=== PATIENT | female | born 1945 | race Caucasian/White ===

== ENCOUNTER 2023-09-28 04:09 | Inpatient (IN) | payer OTHER, SELFPAY ==
[2023-09-27 20:52] VITALS: BP 126/64
[2023-09-28] VITALS (13 sets, daily range): BP systolic 111–144; BP diastolic 59–98; PULSE 100; O2SAT 93; BMI 28.5
[2023-09-28 01:04] LABS: % Basophils 0.2 % (0-2); % Eosinophils 0.1 % (0-6); % Immature Granulocytes 0.3 % (0-0.5); % Lymphocytes 17.1 % (20.5-51.1); % Monocytes 4.9 % (1.7-9.3); % Neutrophils 77.4 % (42.2-75.2); Absolute Lymphocytes 2.1 10^3/uL (1.2-3.4); Absolute Monocytes 0.6 10^3/uL (0.1-0.6); Absolute Neutrophils 9.3 10^3/uL (1.4-6.5); Hematocrit 38.2 % (37.0-47.0); Hemoglobin 13.2 g/dL (12.0-16.0); Mean Corp Hgb Conc. 34.6 g/dL (33.0-37.0); Mean Corpuscular Hgb 30.6 pg (27.0-31.0); Mean Corpuscular Volume 88.4 fL (81.0-99.0); Mean Platelet Volume 11.6 fL (7.4-10.4); Nucleated Red Blood Cells % 0 %; Platelet Count 277 10^3/uL (130-400); Red Blood Cell Count 4.32 10^6/uL (4.20-5.40); Red Cell Dist. Width 14.3 % (11.5-14.5); White Blood Cell Count 12.1 10^3/uL (4.8-10.8)
[2023-09-28 01:18] LABS: ALT (SGPT) 64 U/L (0-35); AST (SGOT) 252 U/L (14-36); Albumin 3.2 g/dl (3.5-5.0); Alkaline Phosphatase 386 U/L (38-126); Blood Urea Nitrogen 40 mg/dl (7-17); Carbon Dioxide 28 mmol/L (22-30); Chloride 97 mmol/L (98-107); Estimated Creatinine Clearance 33 ml/min; Glucose 121 mg/dl (70-99); Potassium 3.7 mmol/L (3.5-5.1); Sodium 136 mmol/L (135-145); Total Bilirubin 2.6 mg/dl (0.2-1.3); Total Protein 9.5 g/dl (6.3-8.2); eGFR 38.75
[2023-09-28 01:29] LABS: Troponin I < 0.012 ng/ml
--- NOTE | 2023-09-28 01:34 | ED.GENMED ---
History of Present Illness
<SOCORRO Wilks - Last Filed: 09/28/23 05:55>
General
Chief Complaint: Cardiac Symptoms
Source: patient
Exam Limitations: none
Time Seen by Provider: 09/28/23 01:16
Travel History
Have you had any contact with someone who has COVID-19?: No
Do you have any symptoms of coronavirus? Fever > 100 degrees, chills, cough, shortness of breath, sore throat, loss of taste or smell, muscle aches, or headache?: No
History of Present Illness
History of Present Illness:
This is a 78 yo female PMH HTN presenting for fatigue x 1 week. She states she has been laying in bed with low energy and low appetite. She states she was evaluated at urgent care today and was recommended to come to the ED. She describes vague
epigastric discomfort that has been present for a couple days. She denies nausea, vomiting, fever, chills, hearing or vision changes, extremity weakness, and gait abnormalities.
According to the patient her medical history is significant for HTN and and cancer diagnosed in 2018, which she thinks is either lymphoma or leukemia. She states she has regular appointments with her oncologist and has never undergone chemotherapy
or radiation therapy.
Review of Systems
<SOCORRO Wilks - Last Filed: 09/28/23 05:55>
Review of Systems
Allergies reviewed?: Yes
Constitutional: Reports fatigue
Respiratory: Reports no symptoms
Cardiac: Reports no symptoms
ABD/GI: Reports no symptoms
: Reports no symptoms
Musculoskeletal: Reports no symptoms
Skin: Reports no symptoms
Neurological: Reports no symptoms
Psychiatric: Reports no symptoms
Phy Exam
<SOCORRO Wilks - Last Filed: 09/28/23 05:55>
General Physical Exam
General Presentation: well appearing and no apparent distress
General age: appears stated age
General Skin: warm and dry
General Habitus: normal
General Mental: alert
General Hydration: appears well hydrated
Eye Exam
Eye Exam: PERRL and EOMI
Cardiovascular Exam
Cardiovascular Exam: regular rate/rhythm, no gallop and no murmur
Pulmonary Exam
Pulmonary Exam: lungs clear and no respiratory distress
Gastrointestinal Exam
Gastrointestinal Exam: non tender, soft and non distended
Neurological Exam
Neurological Exam: alert and oriented x3
Skin Exam
Skin Exam: normal color and warm/dry
Psychiatric Exam
Psychiatric Exam: normal mood/affect
Course
<SOCORRO Wilks - Last Filed: 09/28/23 05:55>
Orders/Labs/Results
Orders:
Orders
09/27/23 20:58
Electrocardiogram (*1) Urgent
Reason for Study: Shortness of Breath
CMP [Comprehensive Metabolic Panel] Urgent
Complete Blood Count/With Diff Urgent
Troponin I Urgent
09/27/23 20:59
EKG- Treatment ONCE
09/28/23 01:47
US Abdomen Complete/Upper Urgent
Comment:
Reason For Exam: Elevated bilirubin, AST, ALT, Alk phos
09/28/23 03:54
Admit/Transfer Patient As Directed
Co-Sign Provider:
Level of Care: Inpatient admission
Assign to:: Telemetry
Physician / Group: Leonidas
Diagnosis: Cholelithiasis +/- Cholecystitis
Reason for Telemetry: Chest Pain syndromes
Date to Stop Telemetry: 09/30/23
Time to Stop Telemetry: 11:00
Reason for Hospitalization: Cholelithiasis +/- Cholecystitis
Expected length of stay greater than two midnights?: Yes
ELOS- Estimated Length of Stay in days: 3
I certify the patient meets the requirements for IP care: Yes
09/28/23 03:55
Code Status As Directed
Resuscitation Status: Full Code
09/28/23 03:58
CPK [Creatine Phosphokinase] Urgent
Lipase Urgent
09/28/23 04:52
0.9% Sodium Chloride 1000 ml [Nss] 1,000 ml IV 125 mls/hr
Acetaminophen [Tylenol] 650 mg PO Q4HPRN PRN
HYDROmorphone [Dilaudid] 0.5 mg IV Q4HPRN PRN
Prochlorperazine [Compazine] 5 mg IV Q6HPRN PRN
09/28/23 04:52
Consult Notification Routine
Specialty to Notify: Gastroenterology
Consult Notification Routine
Specialty to Notify: Surgical
GASTROINTESTINAL CONSULT Routine
Consulting Provider: Lizeth Pickens
Was physician already notified: No
Reason for consult: Cholelithiasis +/- Cholecystitis
SURGICAL CONSULT Routine
Consulting Provider: Quinn Spence
Was physician already notified: No
Reason for consult: Cholelithiasis +/- Cholecystitis
TSH Reflex To Free T4 Routine
Activity As Directed
Activity Level: Ambulate
With Assistance
Bladder Scan As Directed
Follow Bladder Retention/Intermittent Cath Algorithm?: Yes
PRN if no void in __ hours: 6
Frequency: Per Retention Algorithm
If Bladder Scan Result >: 400
then:: Straight cath
EKG with chest pain [ECG as needed] As Directed
ECG as needed for:: Chest Pain
I/O [Intake/ Output] As Directed
Frequency: Per unit guidelines
Orthostatic Vital Signs As Directed
Orthostatic VS Frequency: BID
Straight Cath As Directed
Frequency: Per Retention Algorithm
Additional Instructions: straight cath as needed per acute urinary retention algorithm for 24 hrs
Additional Instructions: for bladder scan greater than 400 mL
Vital Signs As Directed
Frequency: Per unit guidelines
Weight As Directed
Frequency: Daily
Oxygen Therapy [O2 Therapy] [RESP] Routine
Titrate/Wean O2 to maintain O2 sat greater than (%): 94
Rx Incentive Spirometry [RESP] Routine
Frequency: q1h while awake
Ot Eval And Treat Routine
PT Consult [Pt Eval And Treat] Routine
Activity Level: Ambulate
With Assistance
DX Deep Vein Thrombosis Video Routine
09/28/23 06:00
Basic Metabolic Panel IN AM
Complete Blood Count/No Diff IN AM
LFT [Awrmf-Rqtr-Kjhlrew] IN AM
Magnesium IN AM
Phosphorus IN AM
MetroNIDAZOLE 500 MG/100 ML [Flagyl 500 mg] 100 ml IV Q8H
09/28/23 08:00
Amlodipine [Norvasc] 10 mg PO DAILY
Heparin 5,000 units SC Q12
09/29/23 Breakfast
NPO
Allow oral meds: Yes
Allow clear liquids: Sips of Clears
09/30/23 11:00
DC Protocol for Telemetry ONCE
Abnormal Lab Results
09/28/23
00:56
WBC 12.1 H 10^3/uL
(4.8-10.8)
MPV 11.6 H fL
(7.4-10.4)
Absolute Neuts (auto) 9.3 H 10^3/uL
(1.4-6.5)
Neutrophils % 77.4 H %
(42.2-75.2)
Lymphocytes % 17.1 L %
(20.5-51.1)
Chloride 97 L mmol/L
(98-107)
BUN 40 H mg/dl
(7-17)
Creatinine 1.4 H mg/dL
(0.6-1.0)
Glucose 121 H mg/dl
(70-99)
Calcium 13.0 H mg/dl
(8.4-10.2)
Total Bilirubin 2.6 H mg/dl
(0.2-1.3)
AST 252 H U/L
(14-36)
ALT 64 H U/L
(0-35)
Alkaline Phosphatase 386 H U/L
(38-126)
Total Protein 9.5 H g/dl
(6.3-8.2)
Albumin 3.2 L g/dl
(3.5-5.0)
09/28/23 00:56
09/28/23 00:56
Vital Signs
Initial and Last Documented VS:
Initial Vital Signs
Temp Pulse Resp BP Pulse Ox
97.3 F 116 24 126/64 95
09/27/23 20:52 09/27/23 20:52 09/27/23 20:52 09/27/23 20:52 09/27/23 20:52
Last Documented Vital Signs
Temp Pulse Resp BP Pulse Ox
97.3 F 94 23 121/59 94
09/27/23 20:52 09/28/23 01:46 09/28/23 01:46 09/28/23 01:46 09/28/23 01:46
Zuleimalt;Jordan Wayne, DO - Last Filed: 09/28/23 03:29>
Orders/Labs/Results
Orders:
Orders
09/27/23 20:58
Electrocardiogram (*1) Urgent
Reason for Study: Shortness of Breath
CMP [Comprehensive Metabolic Panel] Urgent
Complete Blood Count/With Diff Urgent
Troponin I Urgent
09/27/23 20:59
EKG- Treatment ONCE
09/28/23 01:47
US Abdomen Complete/Upper Urgent
Comment:
Reason For Exam: Elevated bilirubin, AST, ALT, Alk phos
09/28/23 03:54
Admit/Transfer Patient As Directed
Co-Sign Provider:
Level of Care: Inpatient admission
Assign to:: Telemetry
Physician / Group: Leonidas
Diagnosis: Cholelithiasis +/- Cholecystitis
Reason for Telemetry: Chest Pain syndromes
Date to Stop Telemetry: 09/30/23
Time to Stop Telemetry: 11:00
Reason for Hospitalization: Cholelithiasis +/- Cholecystitis
Expected length of stay greater than two midnights?: Yes
ELOS- Estimated Length of Stay in days: 3
I certify the patient meets the requirements for IP care: Yes
09/28/23 03:55
Code Status As Directed
Resuscitation Status: Full Code
09/28/23 03:58
CPK [Creatine Phosphokinase] Urgent
Lipase Urgent
09/28/23 04:52
0.9% Sodium Chloride 1000 ml [Nss] 1,000 ml IV 125 mls/hr
Acetaminophen [Tylenol] 650 mg PO Q4HPRN PRN
HYDROmorphone [Dilaudid] 0.5 mg IV Q4HPRN PRN
Prochlorperazine [Compazine] 5 mg IV Q6HPRN PRN
09/28/23 04:52
Consult Notification Routine
Specialty to Notify: Gastroenterology
Consult Notification Routine
Specialty to Notify: Surgical
GASTROINTESTINAL CONSULT Routine
Consulting Provider: Lizeth Pickens
Was physician already notified: No
Reason for consult: Cholelithiasis +/- Cholecystitis
SURGICAL CONSULT Routine
Consulting Provider: Quinn Spence
Was physician already notified: No
Reason for consult: Cholelithiasis +/- Cholecystitis
TSH Reflex To Free T4 Routine
Activity As Directed
Activity Level: Ambulate
With Assistance
Bladder Scan As Directed
Follow Bladder Retention/Intermittent Cath Algorithm?: Yes
PRN if no void in __ hours: 6
Frequency: Per Retention Algorithm
If Bladder Scan Result >: 400
then:: Straight cath
EKG with chest pain [ECG as needed] As Directed
ECG as needed for:: Chest Pain
I/O [Intake/ Output] As Directed
Frequency: Per unit guidelines
Orthostatic Vital Signs As Directed
Orthostatic VS Frequency: BID
Straight Cath As Directed
Frequency: Per Retention Algorithm
Additional Instructions: straight cath as needed per acute urinary retention algorithm for 24 hrs
Additional Instructions: for bladder scan greater than 400 mL
Vital Signs As Directed
Frequency: Per unit guidelines
Weight As Directed
Frequency: Daily
Oxygen Therapy [O2 Therapy] [RESP] Routine
Titrate/Wean O2 to maintain O2 sat greater than (%): 94
Rx Incentive Spirometry [RESP] Routine
Frequency: q1h while awake
Ot Eval And Treat Routine
PT Consult [Pt Eval And Treat] Routine
Activity Level: Ambulate
With Assistance
DX Deep Vein Thrombosis Video Routine
09/28/23 06:00
Basic Metabolic Panel IN AM
Complete Blood Count/No Diff IN AM
LFT [Exwzs-Tdsf-Dlivqyp] IN AM
Magnesium IN AM
Phosphorus IN AM
MetroNIDAZOLE 500 MG/100 ML [Flagyl 500 mg] 100 ml IV Q8H
09/28/23 08:00
Amlodipine [Norvasc] 10 mg PO DAILY
Heparin 5,000 units SC Q12
09/29/23 Breakfast
NPO
Allow oral meds: Yes
Allow clear liquids: Sips of Clears
09/30/23 11:00
DC Protocol for Telemetry ONCE
Abnormal Lab Results
09/28/23
00:56
WBC 12.1 H 10^3/uL
(4.8-10.8)
MPV 11.6 H fL
(7.4-10.4)
Absolute Neuts (auto) 9.3 H 10^3/uL
(1.4-6.5)
Neutrophils % 77.4 H %
(42.2-75.2)
Lymphocytes % 17.1 L %
(20.5-51.1)
Chloride 97 L mmol/L
(98-107)
BUN 40 H mg/dl
(7-17)
Creatinine 1.4 H mg/dL
(0.6-1.0)
Glucose 121 H mg/dl
(70-99)
Calcium 13.0 H mg/dl
(8.4-10.2)
Total Bilirubin 2.6 H mg/dl
(0.2-1.3)
AST 252 H U/L
(14-36)
ALT 64 H U/L
(0-35)
Alkaline Phosphatase 386 H U/L
(38-126)
Total Protein 9.5 H g/dl
(6.3-8.2)
Albumin 3.2 L g/dl
(3.5-5.0)
09/28/23 00:56
09/28/23 00:56
Vital Signs
Initial and Last Documented VS:
Initial Vital Signs
Temp Pulse Resp BP Pulse Ox
97.3 F 116 24 126/64 95
09/27/23 20:52 09/27/23 20:52 09/27/23 20:52 09/27/23 20:52 09/27/23 20:52
Last Documented Vital Signs
Temp Pulse Resp BP Pulse Ox
97.3 F 94 23 121/59 94
09/27/23 20:52 09/28/23 01:46 09/28/23 01:46 09/28/23 01:46 09/28/23 01:46
<SOCORRO Wilks - Last Filed: 09/28/23 05:55>
MDM/Problems Addressed
Differential Diagnosis Includes:
Cholelithiasis
Cholecystitis
MDM/Problems Addressed:
-Multiple lab abnormalities noted, including bilirubin, AST/ALT, alkaline phosphatase. Abdominal US has been ordered to investigate potential abdominal causes of elevated labs.
-Abdominal US showed multiple gallstones
-Patient will be admitted due to presentation of fatigue x 1 week, elevated LFTs and presence of gallstones
<SOCORRO Wilks - Last Filed: 09/28/23 05:55>
*Critical Care Note
Total Time (30-74mins, 75-104mins- exclusive of procedures): Not Applicable
<Jordan Wayne DO - Last Filed: 09/28/23 03:29>
Update Note
Update Note:
RUQ ABDOMINAL ULTRASOUND
IMPRESSION
Multiple gallstones, difficult to evaluate the neck for an impacted stone given the shear number of stones. There is mild pericholecystic fluid images 82-88 . No sonographic Bauer's sign, wall thickening, or other signs of cholecystitis.
Common bile duct is unremarkable.Constellation findings are nonspecific for acute cholecystitis, consider further workup or followup ultrasound especially if symptoms persist or progress.
Mild hepatomegaly with slightly lobulated appearance.
Kidneys and spleen are unremarkable
Pancreas is obscured secondary to overlying bowel gas.
Remainder of the visualized upper abdomen is unremarkable.
ED Attending Note
<SOCORRO Wilks - Last Filed: 09/28/23 05:55>
-
Portions of this chart may have been created with voice recognition software.� Occasional wrong word or��sound alike� substitutions may have occurred due to the inherent limitations of voice recognition software.
<Jodran Wayne DO - Last Filed: 09/28/23 03:29>
ED Attending Note
Patient seen and examined by attending physician: Yes
I performed the substantive portion of visit, reviewed & personally made and approve the management plan that is documented in note by myself or LYUBOV.: Yes
ED Attending Note:
Pleasant 78-year-old female who presents with 1 week of fatigue. According to family member, she is lying in bed for the last week. She has been having some epigastric and right upper quadrant abdominal pain that started yesterday and persisted
throughout the day. She went to urgent care who evaluated her and ran an EKG. They are concerned about a 'incomplete right bundle branch block 'so sent her to the emergency department. Upon arrival she states that the pain waxed and waned.
Denied chest pain or shortness of breath. Patient was seen in conjunction with the PA student. I have reviewed and agree with the history and treatment plan presented. On my independent physical exam, patient is awake, alert, and oriented x3,
minimal acute distress. Heart is regular rate and rhythm. Lungs are clear to auscultation bilaterally. Abdomen is soft with tenderness to palpation in the epigastric and right upper quadrants. No rigidity or guarding. No rebound tenderness.
Negative McBurney's point tenderness. Negative Bauer sign.
Vital signs are stable. Patient not hypoxic
Nursing note reviewed. I agree with nursing documentation up to this point in time.
Home Meds and allergies reviewed.
NUMBER AND COMPLEXITY OF PROBLEMS ADDRESSED AT THE ENCOUNTER
� Chronic conditions affecting care: Hypertension, cancer
� Acute Exacerbation and/or Progression of Chronic Illness: This acute problem
� Differential Diagnosis includes:
AMOUNT AND/OR COMPLEXITY OF DATA TO BE REVIEWED AND ANALYZED
I performed an independent evaluation of the following and my interpretation is:
EKG: EKG shows sinus tachycardia rate of 105 with a right bundle branch block. Otherwise normal intervals, indeterminate axis. No evidence of acute ischemia present. No old EKGs available for comparison.
CT:
X-rays:
Ultrasound: Gallstones
Laboratory Studies: Total bilirubin is 2.6, AST is 252, ALT is 64, alk phos is 386
Other:
Review of other/old records:
Clinical information was obtained by an independent historian:
Prescriptions/Medications Considered but not given:
Further testing considered but not performed:
RISK OF COMPLICATIONS AND/OR MORBIDITY OR MORTALITY OF PATIENT MANAGEMENT
Social determinants of health affecting care: Good Social Support
Discussion with other providers: Hospitalist for admission
Escalation of care including admission/observation vs risk of discharge considered:
CRITICAL CARE NOTE:
Total Time (exclusive of procedures):
Update:
Discharge Plan
Departure
Patient Disposition: Admit
Date of Disposition: 09/28/23
Time of Disposition: 03:23
Admit to: Med/Surg
Presentation/result/management discussed w/ accepting MD/DO: Hospitalist
Condition: Good
Discharge Problem:
Abdominal pain, Biliary colic, Weakness
Interventions
Interventions:
*Risk Screen - Suicide Last Done: 09/28/23 00:57
*General Assessment Last Done: 09/28/23 00:57
*Neglect/Abuse Screening Last Done: 09/28/23 00:57
*ED COVID-19 Vaccine History Last Done: 09/28/23 00:57
ED- Pulmonary Assessment Last Done: 09/28/23 00:57
ED- Cardiac Assessment Last Done: 09/28/23 00:57
--- NOTE | 2023-09-28 04:00 | HPS.HSE ---
Family Physician
-
Family Physician: Annie Zee
Chief Complaint
-
Fatigue
History of Present Illness
Patient is a 78y F with PMH significant for hypertension and hematologic malignancy who presents to ED complaining of fatigue x 1 week. History obtained from patient and her son at the bedside. Patient notes that she has been very fatigued /
tired for the past week or so. She has had poor appetite and has spent much of her time in bed in a dark room. She denies any significant chest pain, dyspnea, abdominal pain, N/V/D or urinary complaints. With persistent symptoms, today she
presented to an Urgent Care for evaluation. She had an abnormal EKG there and was sent to the ED for further evaluation.
In the ED she is resting comfortably and has no complaints excepting fatigue.
Patient has no prior history of NV / CVA. No known history of gallstone / gallbladder disease.
Medical History
Past Medical History
Past Medical History: Reports Other
Additional Past Medical History:
Hypertension
Hematologic Malignancy / Lymphoma - ? Type
Past Surgical History: Reports Other
Additional Past Surgical History:
Right Neck Surgery (11yo - unknown details)
Social History
Tobacco: Non-smoker
Alcohol: None
Drug: None
Living: With Family
Family History
Family History: Not pertinent
Allergies / Home Medications
Allergies reflects when Allergies were last updated in [facility].
Home Medications with original date entered in [facility]
Allergy/Medication List:
Allergies
Allergy/AdvReac Type Severity Reaction Status Date / Time
amoxicillin Allergy Unknown Verified 09/27/23 20:58
erythromycin base Allergy Nausea / Verified 09/27/23 20:58
Vomiting
Home Medications
amlodipine 10 mg tablet 10 mg PO DAILY 09/28/23
hydrochlorothiazide 25 mg tablet 25 mg PO DAILY 09/28/23
Review of Systems
-
History Source: Patient
A 12 point ROS was completed and negative except as noted: Yes
Constitutional: Reports Fatigue; Denies Fever, Weight Gain, Weight Loss, Night Sweats or Chills
EENT: Denies Sore Throat
Respiratory: Denies Cough or Trouble Breathing
Cardiac: Denies Chest Pain or Palpitations
Abdomen/GI: Reports Anorexia; Denies Abdominal Pain, Nausea, Vomiting, Diarrhea, Constipated, Bloody Stools or Black Stools
: Denies Dysuria, Frequency or Flank Pain
Musculoskeletal: Denies Joint Pain or Edema
Neurological: Denies Dizzy or Headache
Psych: Denies Depression or Anxiety
Physical Exam
Vital Signs
Vital Signs
Temp Pulse Resp BP Pulse Ox
97.3 F 94 23 121/59 94
09/27/23 20:52 09/28/23 01:46 09/28/23 01:46 09/28/23 01:46 09/28/23 01:46
Physical Exam
General: Other (78y F in no acute distress.)
HEENT: PERRLA and Other (Dry MM.)
Respiratory: Other (Decreased BS throughout. No W/R/R.)
Cardiac: S1/S2 and Regular Rhythm; No Murmur
GI: Soft, Non Distended, Normal Bowel Sounds and Other (Mild tenderness over R abdomen. No rebound / guarding.)
Genito-urinary: No costovertebral tender
Musculoskeletal: No Clubbing, No Cyanosis and No Edema
Neuro: AO x 3 and Nonfocal/grossly intact
Psych: No Anxious or Depressed
Laboratory Results
-
09/28/23 00:56
09/28/23 00:56
Laboratory Results
Total Bilirubin 2.6 mg/dl (0.2-1.3) H 09/28/23 00:56
AST 252 U/L (14-36) H 09/28/23 00:56
ALT 64 U/L (0-35) H 09/28/23 00:56
Alkaline Phosphatase 386 U/L (38-126) H 09/28/23 00:56
Troponin I < 0.012 ng/ml 09/28/23 00:56
Impression/Plan
-
A/P: Patient is a 78y F with PMH significant for hypertension and hematologic malignancy who presents to ED complaining of fatigue x 1 week.
Cholelithiasis +/- Cholecystitis
- Admit for further evaluation and treatment.
- Labs done in the ED include abnormal LFTs and follow-up US shows marked amount of gallstones.
- ? pericholecystic fluid. Cannot rule out acute cholecystitis.
- Only presenting symptom is fatigue - no significant pain, N/V, etc.
- Cover with IV abx for now.
- GI and Surgery evaluations.
- ? MR / HIDA for further work-up.
- Follow for any new / worsening symptoms.
Hypercalcemia
- No prior labs to compare.
- With known lymphoma, possible this reflects degree of hypercalcemia of malignancy + volume contraction after one week of poor appetite.
- IVF replacement overnight.
- Follow for changes in labs. May be contributing to sense of fatigue.
- Consider Pamidronate +/- Oncology eval if Ca does not improve with volume alone.
Abnormal LFTs
- Some degree of LFT abnormality (bili, alk phos especially) may be due to gallstone disease.
- AST > > ALT is suspicious for alternate etiology.
- Patient denies any EtOH use at all.
- Check CPK - especially with one week of lying in bed - to rule out rhabdo.
- IVFs as noted above.
- Follow for improvement in labs.
Benign Hypertension
- Stable. Continue amlodipine with holding parameters.
- Hold HCTZ for now.
Hematologic Malignancy
- Patient cannot recall the exact diagnosis - some form of lymphoma.
- She is not now nor has she ever been on active treatment.
- Followed by Dr. Tatum.
- Follow for changes in cell counts, calcium levels, etc.
- No marked cell line abnormalities that would suggest this is contributing to her acute presentation.
DVT Prophylaxis: Subcut Heparin
Code Status: Full
[2023-09-28 06:26] LABS: Hematocrit 37.7 % (37.0-47.0); Hemoglobin 12.8 g/dL (12.0-16.0); Mean Corpuscular Hgb 30.4 pg (27.0-31.0); Mean Corpuscular Volume 89.5 fL (81.0-99.0); Platelet Count 261 10^3/uL (130-400); Red Blood Cell Count 4.21 10^6/uL (4.20-5.40); Red Cell Dist. Width 14.4 % (11.5-14.5); White Blood Cell Count 10.9 10^3/uL (4.8-10.8)
[2023-09-28 06:36] LABS: Creatine Phosphokinase 251 U/L (30-135); Lipase 289 U/L (23-300)
[2023-09-28 06:41] LABS: ALT (SGPT) 55 U/L (0-35); AST (SGOT) 240 U/L (14-36); Albumin 3.2 g/dl (3.5-5.0); Alkaline Phosphatase 354 U/L (38-126); Blood Urea Nitrogen 42 mg/dl (7-17); Calcium 13.1 mg/dl (8.4-10.2); Carbon Dioxide 28 mmol/L (22-30); Chloride 96 mmol/L (98-107); Estimated Creatinine Clearance 36 ml/min; Glucose 105 mg/dl (70-99); Magnesium 2.2 mg/dl (1.6-2.3); Phosphorus 4.4 mg/dl (2.5-4.5); Potassium 3.6 mmol/L (3.5-5.1); Sodium 138 mmol/L (135-145); Total Bilirubin 2.6 mg/dl (0.2-1.3); eGFR 42.35
[2023-09-28 07:09] LABS: TSH Reflex To Free T4 2.29 uIU/ml (0.47-4.68)
[2023-09-28] MEDS: NSS (PRESERVATIVE FREE) 10 ML IV (07:38)
[2023-09-28] MEDS: HEPARIN 5000 UNITS SC ×2 (07:38→21:13)
[2023-09-28] MEDS: PROTONIX IV 40 MG IV (07:38)
[2023-09-28] MEDS: NSS 1000 IV ×2 (08:23→23:48)
[2023-09-28] MEDS: FLAGYL 500 MG 100 IV ×3 (08:40→23:49)
--- NOTE | 2023-09-28 08:48 | CON.GS ---
Consultation
-
Date/Time Consultation Requested: 09/28/2023 8 AM
Date/Time Consultation Performed: 09/28/2023 8 AM
Requesting Provider: Dr. Lauren
Performing Provider: Dr. Luna
Reason for Consultation: Cholelithiasis
Medical History
-
Chief Complaint: Fatigue x 1 week and hypogastric abdominal pain.
History of Present Illness:
This is a 78-year-old female with history of hypertension, lymphoma, and no prior abdominal surgeries who presents with 1 week history of fatigue, poor appetite and was brought in for evaluation. Workup significant for elevated LFTs (bilirubin 2.6,
direct 2.0) which prompted an ultrasound demonstrating cholelithiasis with gallbladder wall thickening and pericholecystic fluid however sonographic Bauer sign was negative. General surgery was consulted to comment on these findings. The patient
denies prior episodes, fever, Chest Pain, Shortness Of Breath, Nausea, Vomiting, changes in urinary and bowel habits, unintentional weight loss, jaundice, icterus, acolic stools.
Past Medical History
Past Medical History: Reviewed & Noncontributory
Past Surgical History: Reviewed & Noncontributory
Social History
Tobacco: Non-Smoker
Alcohol: None
Drug: None
Living: With Family
Family History
Family History: Reviewed & Not Pertinent
Allergies / Home Medications
Allergy/AdvReac Type Severity Reaction Status Date / Time
amoxicillin Allergy Unknown Verified 09/27/23 20:58
erythromycin base Allergy Nausea / Verified 09/27/23 20:58
Vomiting
�Medication �Instructions �Recorded �Confirmed �Type
amlodipine 10 mg tablet 10 mg PO DAILY 09/28/23 09/28/23 History
hydrochlorothiazide 25 mg tablet 25 mg PO DAILY 09/28/23 09/28/23 History
Review of Systems
-
All other systems: Negative unless noted
A 10 point review of systems was completed, and was negative except as per HPI.
Physical Exam
Vital Signs
Temp Pulse Resp BP Pulse Ox
97.8 F 87 12 130/80 95
09/28/23 08:27 09/28/23 08:27 09/28/23 08:27 09/28/23 08:27 09/28/23 08:27
09/27/23 09/28/23 09/29/23
06:59 06:59 06:59
Actual Weight 75.2 kg
Body Mass Index (BMI) 28.5
Lab Results
09/28/23 06:10
09/28/23 06:10
WBC 10.9 10^3/uL (4.8-10.8) H 09/28/23 06:10
Hgb 12.8 g/dL (12.0-16.0) 09/28/23 06:10
Hct 37.7 % (37.0-47.0) 09/28/23 06:10
Plt Count 261 10^3/uL (130-400) 09/28/23 06:10
Abs Immat Gran (auto) 0.0 10^3/uL (0-0.05) 09/28/23 00:56
Neutrophils % 77.4 % (42.2-75.2) H 09/28/23 00:56
Physical Exam
General: Other (No apparent distress, however looks fatigued, answers questions slowly.)
HEENT: Normocephalic
Respiratory: Non Labored Respirations
GI: Soft, Non Distended and Tender (Minimal tenderness in the right upper quadrant)
Data Reviewed
-
Ultrasound: Image Personally Visualized and interpreted, Report Reviewed by me and Discussed with Patient
Labs: Labs Reviewed by me, Discussed with Physician and Discussed with Patient
Total Time Spent with Patient (in minutes): 20
Assessment / Plan
-
This is a 78-year-old female who presents with a 1 week history of worsening fatigue found to have elevated LFTs with a direct bilirubinemia. Minimally tender to palpation. Ultrasound with cholelithiasis, gallbladder wall thickening as well as
some pericholecystic fluid however negative sonographic Bauer sign.
Given elevated bilirubin recommend an MRCP today to evaluate for choledocholithiasis.
N.p.o., IV fluids, IV antibiotics.
Appreciate GI consult.
Anticipate laparoscopic cholecystectomy this admission, unlikely today given OR schedule but potentially tomorrow pending imaging findings and GI recommendations.
We will continue to follow along with you.
I spent roughly 60 minutes in total for the care of this patient today including direct patient care and counseling, reviewing labs, imaging, coordination of care, as well as documentation.
--- NOTE | 2023-09-28 08:54 | CON.GI ---
Addendum entered and electronically signed by Lizeth Pickens MD 09/28/23 15:21:
I saw and examined the patient.
The HONEY PRODUCER or PA's note was reviewed and I agree with the note.
Comment: 78-year-old female past medical history of lymphoma follows with Dr. Tatum and Hu presenting with fatigue and epigastric and right upper quadrant pain for the last 2 weeks. Pain is worse with food. She has lost some weight but cannot
quantify how much. She went to urgent care who did an EKG and was found she is tachycardic with a bundle branch block and was sent to the emergency room here. No nausea or vomiting.
Blood work significant for total bilirubin 2.6, direct 2, AST 240, ALT 55, alk phos 354, white blood cell count 10.9 down from 12.1. No fevers recorded here no fevers reported at home.
Ultrasound showed gallstones with gallbladder wall thickening and probable small pericholecystic fluid. Acute cholecystitis is possible. Hepatomegaly markedly heterogeneous in appearance with likely steatosis.
Due to these findings, we thought this was most likely biliary in etiology. Surgery was consulted. We did an MRI/MRCP which showed markedly abnormal liver, enlarged, heterogeneous with differential signal intensity in the left and right hepatic
lobes as outlined above. Severely restricted diffusion in the left hepatic lobe and heterogeneous enhancement on postcontrast imaging concerning for infiltrative malignancy. Recommend biopsy. Enlarged gallbladder with gallstones but no
gallbladder wall thickening and small amount of perihepatic and perisplenic ascites. Mildly enlarged lymph nodes could be neoplastic, inflammation, infection. Narrowing of the hepatic veins possible Budd-Chiari.
I discussed with the radiologist the above findings. I ordered a Doppler ultrasound. If the Doppler ultrasound is unrevealing, neck step would be getting a liver biopsy. I updated both the surgeon and the hospitalist. I discussed with patient
liver biopsy risks including but not limited to infection, bleeding, perforation. I sent a message to interventional radiology about liver biopsy tomorrow. Hospitalist will also be consulting oncology.
OK for clears after doppler today then NPO after midnight.
Addendum entered and electronically signed by Jackie Kc NP 09/28/23 10:05:
Continue NPO at this time
Original Note:
Consultation
-
Date/Time Consultation Requested: 09/28/23 @ 04:52
Date/Time Consultation Performed: 09/28/23 @ 09:00
Requesting Provider: Dr. Lauren
Performing Provider: ANTONINO Treviño; Dr. Merle Pickens
Reason for Consultation: Cholelithiasis +/- Cholecystitis
Medical History
Chief Complaint / HPI
Chief Complaint: fatigue
History of Present Illness:
The pt is a 78 yo female with a PMH significant for HTN, lymphoma (diagnosed in 2018 did not require treatment per patient followed by Dr. Tatum and [facility]), who presented to the ER with complaints of fatigue. We are being asked to evaluate for
abnormal LFTs with concern for cholecystitis with cholelithiasis. The patient reports that she has been having some some discomfort in her right upper quadrant over the past several days that radiates across the top of her abdomen. She denies any
radiation to her back but reports this pain was acute in onset. She denies using any pain medications at home such as Tylenol or NSAIDs. She also admits to feeling increasingly fatigued as well the past week. She notes that she has not been
eating well due to the ongoing discomfort and fatigue and thinks she may have lost some weight but is unclear how much. She denies any history of gallbladder disease or liver problems. She denies any alcohol use. She denies any recent changes in
her medications. She otherwise denies any fevers, chills, nausea, vomiting, dysphagia, constipation, diarrhea, melena, hematochezia, hematemesis, chest pain, or shortness of breath. She does note that she has a history of lymphoma although she is
on sure as to what type, but she does follow with oncology Dr. Tatum routinely, alternating seeing him in a doctor at [facility] every 3 to 6 months. She denies any need for treatment and has been monitored closely in regards to this since 2018. She
notes she had labs done in August and does not note any abnormalities at that time. She denies any history of hepatitis. She denies any history of drug use. She denies any significant family history of colon cancer or other GI cancers or
disorders. She notes that her granddaughter did need her gallbladder. She reports having a colonoscopy done in 2019 out of [place] which she had some questionable hemorrhoids banded otherwise denies any polyp. She denies any prior EGD. Routine
labs on admission showed WBC 12.1, hemoglobin 13.2, platelets 277,000, sodium 136, potassium 3.7, chloride 97, BUN 40, creatinine 1.4, calcium 13.0, total bilirubin 2.6, direct bilirubin 2.0, troponin negative x 1, AST 252, ALT 64, alk phos 386,
albumin 3.2, lipase 289, TSH 2.29. Ultrasound of the abdomen was done showing gallstones with gallbladder wall thickening and possible acute cholecystitis without evidence of biliary ductal dilation, with hepatomegaly and likely fatty liver. She
was made n.p.o., placed on IV antibiotics with Levaquin and Flagyl, and admitted for further evaluation by GI and general surgery. She did receive pain medication in the emergency room and currently feels comfortable.
Past Medical History
Past Medical History: Cancer (? Lymphoma follows with [facility] and [facility]) and HTN
Past Surgical History: Other (Neck surgery as a child)
Social History
Tobacco: Non-Smoker
Alcohol: None
Drug: None
Family History
Family History: Reviewed & Not Pertinent
Allergies / Home Medications
Allergy/AdvReac Type Severity Reaction Status Date / Time
amoxicillin Allergy Unknown Verified 09/27/23 20:58
erythromycin base Allergy Nausea / Verified 09/27/23 20:58
Vomiting
�Medication �Instructions �Recorded
amlodipine 10 mg tablet 10 mg PO DAILY 09/28/23
hydrochlorothiazide 25 mg tablet 25 mg PO DAILY 09/28/23
Review of Systems
-
History Source: Patient
Constitutional: Reports Weight Loss and Fatigue
EENT: Reports No Symptoms
Respiratory: Reports No Symptoms
Cardiac: Reports No Symptoms
Abdomen/GI: Reports Abdominal Pain and Other (Loss of appetite)
: Reports No Symptoms
Musculoskeletal: Reports No Symptoms
Skin: Reports No Symptoms
Neurological: Reports No Symptoms
Vital Signs
Temp Pulse Resp BP Pulse Ox
97.8 F 87 12 130/80 95
09/28/23 08:27 09/28/23 08:27 09/28/23 08:27 09/28/23 08:27 09/28/23 08:27
Physical Exam
Exam
General: Well Nourished, Comfortable and Other (Elderly appearing female in no acute distress)
HEENT: Normocephalic, Anicteric and Atraumatic
Respiratory: Clear
Cardiac: S1/S2 and Regular Rhythm
Breast: Deferred by me
GI: Soft, Non Distended, Normal Bowel Sounds and Tender (+TTP RUQ)
Rectal: Deferred by Provider
Musculoskeletal: No Edema
Skin: Warm and Dry
Neuro: Awake, Alert and Oriented
Psych: Calm
Results
WBC 10.9 10^3/uL (4.8-10.8) H 09/28/23 06:10
Hgb 12.8 g/dL (12.0-16.0) 09/28/23 06:10
Hct 37.7 % (37.0-47.0) 09/28/23 06:10
MCV 89.5 fL (81.0-99.0) 09/28/23 06:10
Plt Count 261 10^3/uL (130-400) 09/28/23 06:10
Absolute Neuts (auto) 9.3 10^3/uL (1.4-6.5) H 09/28/23 00:56
Sodium 138 mmol/L (135-145) 09/28/23 06:10
Potassium 3.6 mmol/L (3.5-5.1) 09/28/23 06:10
Chloride 96 mmol/L (98-107) L 09/28/23 06:10
Carbon Dioxide 28 mmol/L (22-30) 09/28/23 06:10
BUN 42 mg/dl (7-17) H 09/28/23 06:10
Creatinine 1.3 mg/dL (0.6-1.0) H 09/28/23 06:10
Calcium 13.1 mg/dl (8.4-10.2) H* 09/28/23 06:10
Total Bilirubin 2.6 mg/dl (0.2-1.3) H 09/28/23 06:10
AST 240 U/L (14-36) H 09/28/23 06:10
ALT 55 U/L (0-35) H 09/28/23 06:10
Alkaline Phosphatase 354 U/L (38-126) H 09/28/23 06:10
Lipase 289 U/L (23-300) 09/28/23 06:10
Diagnostic Image Results:
09/27/23 US abdomen: IMPRESSION: 'Cholelithiasis with gallbladder wall thickening and probable small volume pericholecystic fluid. Negative sonographic Bauer's sign. No findings to confirm biliary tract dilatation. Acute cholecystitis is possible.
Hepatomegaly, markedly heterogeneous in appearance and with relative increased echogenicity suggesting steatosis. Pancreas, abdominal aorta and IVC obscured, most likely by overlying bowel gas.'
Prior GI Procedures:
EGD: None
Colonoscopy: Last colonoscopy in 2019 done out of [place], patient reports banding for hemorrhoids but no polyp upon her recollection (report not available to me)
Assessment / Plan
-
The pt is a 78 yo female with a PMH significant for HTN, lymphoma (diagnosed in 2018 did not require treatment per patient followed by Dr. Tatum and [facility] Lui), who presented to the ER with complaints of fatigue, found to have elevated LFTs and
abnormal ultrasound imaging concerning for acute cholecystitis and possible choledocholithiasis given presence of gallstones and elevated bilirubin. She was started on IV antibiotics with Levaquin and Flagyl, made n.p.o., and admitted for further
evaluation by GI and general surgery. Currently she feels comfortable. Her LFTs remain elevated. Pending MRI and MRCP this morning. No prior history of liver disease or gallbladder disease. She does note history of lymphoma, unclear type,
follows with oncology regularly for surveillance and monitoring. Also with elevated calcium levels started on IV fluids.
Problem list:
-Abdominal pain, RUQ
-Abnormal LFTs
-Ultrasound imaging showing gallstones and possible acute cholecystitis without biliary ductal dilation
-Hypercalcemia
-Leukocytosis
-?JUSTIN, unclear baseline
-History of lymphoma, diagnosed in 2018 following with oncology, no prior treatment
-HTN
Recommendations:
-Etiology of abdominal pain/elevated LFT's likely secondary to biliary etiology given ultrasound findings such as acute cholecystitis versus choledocholithiasis versus other.
-Await MRI with MRCP for further evaluation. If positive for choledocho will need ERCP
-General surgery evaluation pending, will likely need eventual CCY
-Trend LFTs
-Antibiotics initiated with Levaquin and Flagyl
-Avoid hepatotoxins
-PRN analgesics as per hospitalist
-Unclear baseline for renal function, but downtrending creatinine. On IV fluids
-Persistent hypercalcemia, defer to hospitalist, may need oncology input given hx of lymphoma. Known to [place] Dr. Tatum.
-Will follow
Data Reviewed
-
Ultrasound: Report Reviewed by me and Discussed with Physician
-
-
Thank you for consultation and allowing me to participate in the patient's care. Please call the student education specialist GI physician during the after hours with any questions or concerns.
--- NOTE | 2023-09-28 09:03 | PTCARENOTE ---
0800: Patient arrived to 2S. Full head to toe assessment completed. IVF running per order. Call funes within reach and bed in lowest position.
[2023-09-28] MEDS: LEVAQUIN 100 IV (11:17)
--- NOTE | 2023-09-28 13:40 | W.PN.HOSP.TC ---
Today's Communication/Plan
-
Continue with IV fluids
Trend CMP
will ask onc for input
Antibiotics for now
Assessment / Plan
Assessment / Plan
A/P: Patient is a 78y F with PMH significant for hypertension and hematologic malignancy who presents to ED complaining of fatigue x 1 week.
Cholelithiasis +/- Cholecystitis
- Labs done in the ED include abnormal LFTs and follow-up US shows marked amount of gallstones.
- Only presenting symptom is fatigue - no significant pain, N/V, etc.
- Cover with IV abx for now.
- GI and Surgery evaluations.
- MRCP follow-up Elongated. Multiple gallstones. No intrahepatic biliary ductal dilatation. No CBD dilatation. No intraluminal filling defect.
- Follow for any new / worsening symptoms.
Hypercalcemia likely multifactorial With known lymphoma, possible this reflects degree of hypercalcemia of malignancy + volume contraction after one week of poor appetite vs, HCTZ plus prolonged bedrest
- No prior labs to compare.
-Per patient with lymphoma she does have episode of severe hypercalcemia
- IVF continue aggressively.
- Follow for changes in labs. May be contributing to sense of fatigue.
- Check ionized calcium and PTH and vitamin D level. Out of bed with PT and OT
- Consider Pamidronate.
Abnormal LFTs
- Some degree of LFT abnormality (bili, alk phos especially) may be due to gallstone disease.
- AST > > ALT is suspicious for alternate etiology.
- Patient denies any EtOH use at all.
- Check CPK - 251
- IVFs as noted above.
- Follow for improvement in labs.
- MRCP with abnormal liver lesion. Ultrasound Doppler added per GI. May need liver biopsy. Will also ask onc for input
Benign Hypertension
- Stable. Continue amlodipine with holding parameters.
- Hold HCTZ for now.
Hematologic Malignancy/lymphoma.
- Patient cannot recall the exact diagnosis - some form of lymphoma.
- She is not now nor has she ever been on active treatment.
- Followed by Dr. Tatum.
- Follow for changes in cell counts, calcium levels, etc.
- No marked cell line abnormalities that would suggest this is contributing to her acute presentation.
DVT Prophylaxis: Subcut Heparin
Code Status: Full
Discussed with patient's at bedside in details
Anticipated Discharge: > 48 hours
Subjective/Interval History
-
Date of Service: September 28, 2023
Denies any abdominal pain nausea or vomiting
Denies any lightheadedness dizziness
Objective Data
-
Labs:
Laboratory Results
09/28/23
06:10
WBC 10.9 H
Hgb 12.8
Hct 37.7
Plt Count 261
Sodium 138
Potassium 3.6
Chloride 96 L
Carbon Dioxide 28
BUN 42 H
Creatinine 1.3 H
Glucose 105 H
Calcium 13.1 H*
Total Bilirubin 2.6 H
AST 240 H
ALT 55 H
Alkaline Phosphatase 354 H
Vital Signs:
Vital Signs
Temp Pulse Resp BP Pulse Ox
97.8 F 101 18 127/63 95
09/28/23 12:00 09/28/23 12:00 09/28/23 12:00 09/28/23 12:00 09/28/23 12:00
Physical Exam
-
General: Well Developed and No Apparent Distress
HEENT: Normocephalic, Atraumatic and Moist Mucous Membranes
Respiratory: Clear to Auscultation
Cardiac: Regular Rhythm and S1/S2; Negative Murmur, Rub or Gallop
GI: Soft, Nontender, Nondistended and Normal Bowel Sounds; Negative Organomegaly
Rectal: Deferred by Provider
Musculoskeletal: No Clubbing, No Cyanosis and No Edema
Skin: Negative Rash
Neuro: Awake, AO x 3, No Motor Deficits and Nonfocal/Grossly Intact
Psych: Calm
Data Reviewed
-
Total Time Spent with Patient (in minutes): 56
[2023-09-28] MEDS: NSS IV (20:49)
[2023-09-29 03:41] VITALS: BP 106/56; BP 110/51; BP 112/56; PULSE 106; PULSE 92
[2023-09-29 04:36] LABS: % Basophils 0.1 % (0-2); % Eosinophils 0.3 % (0-6); % Immature Granulocytes 0.3 % (0-0.5); % Lymphocytes 20.9 % (20.5-51.1); % Neutrophils 71.4 % (42.2-75.2); Absolute Lymphocytes 1.8 10^3/uL (1.2-3.4); Absolute Monocytes 0.6 10^3/uL (0.1-0.6); Absolute Neutrophils 6.1 10^3/uL (1.4-6.5); Hematocrit 34.2 % (37.0-47.0); Hemoglobin 11.5 g/dL (12.0-16.0); Mean Corp Hgb Conc. 33.6 g/dL (33.0-37.0); Mean Corpuscular Hgb 30.1 pg (27.0-31.0); Mean Corpuscular Volume 89.5 fL (81.0-99.0); Mean Platelet Volume 11.7 fL (7.4-10.4); Nucleated Red Blood Cells % 0 %; Platelet Count 206 10^3/uL (130-400); Red Blood Cell Count 3.82 10^6/uL (4.20-5.40); Red Cell Dist. Width 14.5 % (11.5-14.5); White Blood Cell Count 8.6 10^3/uL (4.8-10.8)
[2023-09-29 04:46] LABS: INR 1.53; PT 18.2 Sec (11.4-14.6)
[2023-09-29 04:47] LABS: APTT 44.5 Sec (23.4-35.0)
[2023-09-29 05:12] LABS: Blood Urea Nitrogen 38 mg/dl (7-17); Estimated Creatinine Clearance 33 ml/min; Glucose 86 mg/dl (70-99); Sodium 139 mmol/L (135-145); eGFR 38.75
[2023-09-29 05:13] LABS: ALT (SGPT) 47 U/L (0-35); AST (SGOT) 214 U/L (14-36); Albumin 2.9 g/dl (3.5-5.0); Alkaline Phosphatase 303 U/L (38-126); Calcium 12.3 mg/dl (8.4-10.2); Carbon Dioxide 26 mmol/L (22-30); Chloride 102 mmol/L (98-107); Potassium 3.4 mmol/L (3.5-5.1); Total Bilirubin 2.5 mg/dl (0.2-1.3); Total Protein 7.7 g/dl (6.3-8.2)
[2023-09-29 05:23] LABS: Vitamin D, 25-OH*** < 12.8 ng/mL (30-80)
[2023-09-29 06:00] VITALS: BMI 28.2
[2023-09-29 07:00] VITALS: BP 121/52
--- NOTE | 2023-09-29 07:20 | W.PN.GS2 ---
Today's Communication / Plan
-
-- No plans or indication for cholecystectomy at this time
Assessment / Plan
-
Patient is a 78 yo F p/w painless jaundice and elevated bilirubin and LFTs in setting of fatigue and weight loss
No clinical history concerning for cholecystitis. MRI concerning for markedly abnormal liver with possible mass, no CBD filling defects, enlarged gallbladder with multiple stones, mild perihepatic and perisplenic ascites, mildly enlarged nodes
within the helen hepatis.
-- No plans or indication for cholecystectomy at this time.
-- Further workup for potential liver mass with IR and GI.
-- Oncology consult noted.
--Will follow peripherally, please call with any questions or concerns
Subjective Data
-
Date of Service: September 29, 2023
No specific complaints or issues. Denies any abdominal pain. Denies any discomfort with oral intake. No nausea or vomiting. No reported fluctuations in stools. She does states that she has been losing weight over the past few weeks. No fevers
or chills.
Objective Data
-
Intake and Output
09/28/23 09/29/23 09/30/23
06:59 06:59 06:59
Intake Total 2039
Balance 2039
Intake:
Oral fluids 240 / 240
IV fluids (Total) 1500 / 1500
IV piggybacks 300 / 300
Other:
Number of approximated SMALL 1
amounts of urine
Number of approximated MODERATE 1
amounts of urine
Vital Signs
Temp Pulse Resp BP Pulse Ox
98.9 F 86 18 121/52 93
09/29/23 07:00 09/29/23 07:00 09/29/23 07:00 09/29/23 07:00 09/29/23 07:00
Lab Results
09/29/23 04:21
09/29/23 04:21
Calcium 12.3 mg/dl (8.4-10.2) H 09/29/23 04:21
Phosphorus 4.4 mg/dl (2.5-4.5) 09/28/23 06:10
Magnesium 2.2 mg/dl (1.6-2.3) 09/28/23 06:10
Total Bilirubin 2.5 mg/dl (0.2-1.3) H 09/29/23 04:21
Direct Bilirubin 2.0 mg/dl (0.0-0.4) H 09/28/23 06:10
AST 214 U/L (14-36) H 09/29/23 04:21
ALT 47 U/L (0-35) H 09/29/23 04:21
Alkaline Phosphatase 303 U/L (38-126) H 09/29/23 04:21
Total Protein 7.7 g/dl (6.3-8.2) 09/29/23 04:21
Albumin 2.9 g/dl (3.5-5.0) L 09/29/23 04:21
Physical Exam
-
Gen: NAD
Abd: soft, NT/ND, negative Bauer's sign, palpable large liver
[2023-09-29] MEDS: NSS (PRESERVATIVE FREE) 10 ML IV (07:33)
[2023-09-29] MEDS: PROTONIX IV 40 MG IV (07:33)
[2023-09-29] MEDS: FLAGYL 500 MG 100 IV (07:33)
[2023-09-29] MEDS: HEPARIN SC (07:34)
--- NOTE | 2023-09-29 08:36 | CON.ONC ---
Impression
Impression
infiltrative liver process, suggestive of malignancy
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
Hypercalcemia
Plan
Plan
Agree with plans for liver biopsy as ordered by GI
Lymphoplasmacytic lymphoma can occasionally involve the liver
Will give pamidronate for hypercalcemia of malignancy, continue IV fluids
Tumor markers pending, CEA and CA 19-9
Will follow along and consider treatment options pending biopsy results. Fortunately, multiple good treatment options exist for lymphoplasmacytic lymphoma.
Patient History
History of Present Illness
This is a 78-year-old female, known to Dr. Tatum for surveillance of IgA lymphoplasmacytic lymphoma, stable over more than 5 years and most recently assessed in August 2023, presented to the emergency room with significant fatigue for the past week,
with poor appetite and poor p.o. intake. She had been spending much time in bed in the dark. She first presented to urgent care where an EKG was abnormal and she was sent to the emergency room for further evaluation. Workup in the ER was noted
for elevated LFTs, elevated BUN and creatinine, white blood cell count of 12.1, with hypercalcemia of 13, corrected to 13.6 when low albumin is taken into consideration. Abdominal ultrasound showed cholelithiasis with gallbladder wall thickening
and small volume pericholecystic fluid. She was evaluated by general surgery who did not feel her clinical picture was consistent with acute cholecystitis. Abdominal MRI revealed a markedly abnormal liver, enlarged, heterogeneous with findings
concerning for an infiltrative malignancy. Also noted were mildly enlarged lymph nodes in the helen hepatis. Liver biopsy has been ordered.
She was given IV fluids overnight, hypercalcemia persists. Corrected calcium is 13.2 this morning.
Past-Medical/Surgical History
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 Most recent evaluation on September 07, 2023 showed stable lab values and no indications for disease progression or the
need for treatment. She also has a history of hypertension, no surgical history. Social history: She is a non-smoker, does not drink alcohol. 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 She is with 2 children. Family history is noted for stroke in
her mother and diabetes in her brother.
Patient Medication
�Medication �Instructions �Recorded �Confirmed �Last Taken �Type
amlodipine 10 mg tablet 10 mg PO DAILY 09/28/23 09/28/23 Unknown History
hydrochlorothiazide 25 mg tablet 25 mg PO DAILY 09/28/23 09/28/23 Unknown History
Active Medications
Generic Name Dose Route Start Last Admin
Trade Name Freq PRN Reason Stop Dose Admin
Acetaminophen 650 mg 09/28/23 04:52
Acetaminophen 325 Mg Tablet PO 10/26/23 04:51
Q4HPRN PRN
Mild Pain / Temp > 101
Amlodipine Besylate 10 mg 09/28/23 08:00 09/28/23 08:24
Amlodipine 10 Mg Tablet PO 10/26/23 07:59 Not Given
DAILY CRISTO
Heparin Sodium 5,000 units 09/28/23 08:00 09/29/23 07:34
Heparin 5,000 Units/Ml 1 Ml Vial SC 10/26/23 07:59 Not Given
Q12 CRISTO
Hydromorphone HCl 0.5 mg 09/28/23 04:52
Hydromorphone 0.5 Mg/0.5 Ml Syringe IV 10/12/23 04:51
Q4HPRN PRN
severe pain
Sodium Chloride 1,000 mls @ 125 mls/hr 09/28/23 04:52 09/28/23 23:48
Nss IV 1,000 mls
.Q8H CRISTO Administration
Potassium Chloride 20 meq/ 260 mls @ 130 mls/hr 09/29/23 07:38
Sodium Chloride IV 09/29/23 09:37
NOW STA
Pamidronate Disodium 60 mg/ 270 mls @ 125 mls/hr 09/29/23 08:35
Sodium Chloride IV 09/29/23 10:44
ONCE ONE
Pantoprazole Sodium 40 mg 09/28/23 08:00 09/29/23 07:33
Protonix 40 Mg Iv Push IV 10/26/23 07:59 40 mg
DAILY CRISTO Administration
Prochlorperazine Edisylate 5 mg 09/28/23 04:52
Prochlorperazine 10 Mg/2 Ml Vial IV 10/26/23 04:51
Q6HPRN PRN
Nausea
Sodium Chloride 0 flush 09/28/23 06:00
Sodium Chloride 0.9% (Flush) Syringe IV 10/26/23 05:59
PER PROTOCOL CRISTO
Sodium Chloride 10 ml 09/28/23 08:00 09/29/23 07:33
Sodium Chloride 0.9% (Preservative Free) 10 Ml Vial IV 10/26/23 07:59 10 ml
DAILY CRISTO Administration
Review of Systems
-
Unable to obtain full review of systems at this time due to: Other (Transport waiting to take patient to Ultrasound)
Physical Exam
-
Limited exam, as transport was waiting to take patient to ultrasound
General: Conversant and Appears Chronically Ill
HEENT: Negative Moist Mucous Membranes
Neurology: Non Focal
Skin: Dry
Labs
Lab Results
WBC 8.6 10^3/uL (4.8-10.8) 09/29/23 04:21
RBC 3.82 10^6/uL (4.20-5.40) L 09/29/23 04:21
Hgb 11.5 g/dL (12.0-16.0) L 09/29/23 04:21
Hct 34.2 % (37.0-47.0) L 09/29/23 04:21
MCV 89.5 fL (81.0-99.0) 09/29/23 04:21
MCH 30.1 pg (27.0-31.0) 09/29/23 04:21
MCHC 33.6 g/dL (33.0-37.0) 09/29/23 04:21
RDW 14.5 % (11.5-14.5) 09/29/23 04:21
Plt Count 206 10^3/uL (130-400) D 09/29/23 04:21
MPV 11.7 fL (7.4-10.4) H 09/29/23 04:21
Abs Immat Gran (auto) 0.0 10^3/uL (0-0.05) 09/29/23 04:21
Absolute Neuts (auto) 6.1 10^3/uL (1.4-6.5) 09/29/23 04:21
Absolute Lymphs (auto) 1.8 10^3/uL (1.2-3.4) 09/29/23 04:21
Absolute Monos (auto) 0.6 10^3/uL (0.1-0.6) 09/29/23 04:21
Absolute Eos (auto) 0.0 10^3/uL (0-0.7) 09/29/23 04:21
Absolute Basos (auto) 0.0 10^3/uL (0-0.2) 09/29/23 04:21
Immature Gran % 0.3 % (0-0.5) 09/29/23 04:21
Neutrophils % 71.4 % (42.2-75.2) 09/29/23 04:21
Lymphocytes % 20.9 % (20.5-51.1) 09/29/23 04:21
Monocytes % 7.0 % (1.7-9.3) 09/29/23 04:21
Eosinophils % 0.3 % (0-6) 09/29/23 04:21
Basophils % 0.1 % (0-2) 09/29/23 04:21
Creatinine 1.4 mg/dL (0.6-1.0) H 09/29/23 04:21
Vital Signs
Vital Signs
Temp Pulse Resp BP Pulse Ox
98.9 F 86 18 121/52 93
09/29/23 07:00 09/29/23 07:00 09/29/23 07:00 09/29/23 07:00 09/29/23 07:00
[2023-09-29 09:24] LABS: Intact PTH 13.5 pg/ml (13.6-85.8)
[2023-09-29 09:29] LABS: CEA 21.9 ng/ml
--- NOTE | 2023-09-29 09:36 | W.PN.GI.CBS2 ---
Addendum entered and electronically signed by Jewell Manrique DO 09/29/23 10:58:
I saw and examined the patient.
The [employer] or PA's note was reviewed and I agree with the note.
Comment: Patient seen in follow-up today following abdominal US w/ dopplers. IR liver biopsy initially planned for today, however, deferred until tomororow due to scheduling difficulties in the setting of emergent procedures requiring immediate
attention. Concern for infiltrative hepatic disease-- lymphoma recurrence high on differential. Additionally, narrowing of hepatic veins with question of budd-chiari, will f/u dopplers. Will place back on clear liquids and NPO PMN for planned liver
biopsy tomorrow.
Original Note:
Today's Communication / Plan
-
Follow Doppler US. Liver bx today. Trend LFT's.
Assessment / Plan
-
The pt is a 78 yo female with a PMH significant for HTN, lymphoma (diagnosed in 2018 did not require treatment per patient followed by Dr. Tatum and Gaston Lui), who presented to the ER with complaints of fatigue, found to have elevated LFTs and
abnormal ultrasound imaging concerning for acute cholecystitis and possible choledocholithiasis given presence of gallstones and elevated bilirubin. She was started on IV antibiotics with Levaquin and Flagyl, made n.p.o., and admitted for further
evaluation by GI and general surgery. Currently she feels comfortable. Her LFTs remain elevated. Pending MRI and MRCP this morning. No prior history of liver disease or gallbladder disease. She does note history of lymphoma, unclear type,
follows with oncology regularly for surveillance and monitoring. Also with elevated calcium levels started on IV fluids.
09/28/2023 MRI abdomen:
IMPRESSION:
'1. Markedly abnormal liver, enlarged, heterogeneous, with differential signal intensity in the left and right hepatic lobes as outlined above. Severely restricted diffusion in the left hepatic lobe with heterogeneous enhancement on postcontrast
imaging concerning for an infiltrative malignancy. BIOPSY IS RECOMMENDED TO EXCLUDE MALIGNANCY.
2. Multiple abnormal small foci of increased T2 signal intensity foci in the right hepatic lobe likely represent siderotic regenerative nodules.
3. No intra or extrahepatic biliary ductal dilatation. No filling defect in the common bile duct.
4. Enlarged gallbladder, with multiple varying size gallstones. No gallbladder wall thickening. Small amount of perihepatic and perisplenic ascites.
5. Mildly enlarged lymph nodes in the helen hepatis are nonspecific. Most likely neoplastic, however may be due to inflammation or infection.
6. The splenic, superior mesenteric and portal veins are patent. There is narrowing of the hepatic veins, question the possibility of Budd-Chiari?'
Problem list:
-Abdominal pain, RUQ, resolved
-Abnormal LFTs
-MRI concerning for infiltrative malignancy
-Ultrasound imaging showing gallstones and ?acute cholecystitis without biliary ductal dilation
-Hypercalcemia
-Leukocytosis
-?JUSTIN, unclear baseline
-Lymphoplasmacytic lymphoma, diagnosed in 2018 following with oncology, no prior treatment
-HTN
Recommendations:
-Etiology of abdominal pain/elevated LFT's likely secondary to concern for infiltrative malignancy process given hx lymphoma v Budd Chiari v other.
-MRI/MRCP as above. Doppler US pending, will follow results
-Await liver bx, planned for today
-NPO for liver bx
-General surgery evaluation on hold given MRI findings. Oncology is following
-Trend LFTs
-PRN analgesics as per hospitalist
-Persistent hypercalcemia, being managed by oncology.
Subjective
Subjective
Date of Service: September 29, 2023
The pt was seen and examined at the bedside. She denies any complaints today. Doppler ultrasound of the abdomen is pending along with liver biopsy today. She denies any further abdominal pain.
Objective
Data Reviewed
Laboratory Data:
Laboratory Results
09/29/23 04:21
09/29/23 04:21
Laboratory Results
PT 18.2 Sec (11.4-14.6) H 09/29/23 04:21
INR 1.53 09/29/23 04:21
APTT 44.5 Sec (23.4-35.0) H 09/29/23 04:21
Phosphorus 4.4 mg/dl (2.5-4.5) 09/28/23 06:10
Magnesium 2.2 mg/dl (1.6-2.3) 09/28/23 06:10
Total Bilirubin 2.5 mg/dl (0.2-1.3) H 09/29/23 04:21
AST 214 U/L (14-36) H 09/29/23 04:21
ALT 47 U/L (0-35) H 09/29/23 04:21
Alkaline Phosphatase 303 U/L (38-126) H 09/29/23 04:21
Lipase 289 U/L (23-300) 09/28/23 06:10
Vital Signs and I&O:
Vital Signs
Temp Pulse Resp BP Pulse Ox
98.9 F 86 18 121/52 93
09/29/23 07:00 09/29/23 07:00 09/29/23 07:00 09/29/23 07:00 09/29/23 07:00
I&O
09/28/23 09/29/23 09/30/23
06:59 06:59 06:59
Intake Total 2039
Balance 2039
Physical Exam
Physical Exam
HEENT: Anicteric
Cardiology: S1 and S2 (Regular rate/rhythm)
Pulmonary: Clear
GI: Soft, Non Distended, Non Tender and Normal Bowel Sounds
Neuro: Non Focal
[2023-09-29] MEDS: KCL 260 MEQ IV (09:42)
[2023-09-29 11:00] VITALS: BP 132/54
[2023-09-29] MEDS: AREDIA 270 MG IV (12:07)
--- NOTE | 2023-09-29 12:12 | W.PN.HOSP.TC ---
Today's Communication/Plan
-
Liver biopsy in the morning
Continue with IV fluids
monitor blood pressure
Assessment / Plan
Assessment / Plan
A/P: Patient is a 78y F with PMH significant for hypertension and hematologic malignancy who presents to ED complaining of fatigue x 1 week.
Hypercalcemia likely multifactorial With known lymphoma, possible this reflects degree of hypercalcemia of malignancy + volume contraction after one week of poor appetite vs, HCTZ plus prolonged bedrest
- No prior labs to compare.
- Per patient with lymphoma she does have episode of severe hypercalcemia
- IVF continue aggressively.
- Follow for changes in labs. May be contributing to sense of fatigue.
- Out of bed with PT and OT.
- Mild downtrend of calcium noted. PTH pending
- Status post pamidronate.
Abnormal LFTs concern for infiltrative liver process
- AST > > ALT is suspicious for alternate etiology.
- Patient denies any EtOH use at all.
- Check CPK - 251
- IVFs as noted above.
- Follow for improvement in labs.
- MRCP with abnormal liver lesion. Ultrasound Doppler added per GI and with patency. May need liver biopsy.
- Concern for infiltrative liver malignancy in the setting of lymphoma. Plan is for liver biopsy in the morning.
- No concern for gallbladder related disease or acute cholecystitis. Antibiotics discontinued.
Benign Hypertension
- Stable. Continue amlodipine with holding parameters.
- Hold HCTZ for now.
Hematologic Malignancy/lymphoma.
- Patient cannot recall the exact diagnosis - some form of lymphoma.
- She is not now nor has she ever been on active treatment.
- Followed by Dr. Tatum.
- Follow for changes in cell counts, calcium levels, etc.
- No marked cell line abnormalities that would suggest this is contributing to her acute presentation.
Hypokalemia
-Replete/monitor
DVT Prophylaxis: Subcut Heparin on hold for liver biopsy in the morning
Code Status: Full
Discussed with family member at bedside in details.
Anticipated Discharge: > 48 hours
Subjective/Interval History
-
Date of Service: September 29, 2023
Denies any abdominal pain, lightheaded or dizziness
Objective Data
-
Labs:
Laboratory Results
09/29/23
04:21
WBC 8.6
Hgb 11.5 L
Hct 34.2 L
Plt Count 206 D
PT 18.2 H
INR 1.53
APTT 44.5 H
Sodium 139
Potassium 3.4 L
Chloride 102
Carbon Dioxide 26
BUN 38 H
Creatinine 1.4 H
Glucose 86
Calcium 12.3 H
Total Bilirubin 2.5 H
AST 214 H
ALT 47 H
Alkaline Phosphatase 303 H
Vital Signs:
Vital Signs
Temp Pulse Resp BP Pulse Ox
98.0 F 80 18 132/54 96
09/29/23 11:00 09/29/23 11:00 09/29/23 11:00 09/29/23 11:00 09/29/23 11:00
I&O
09/28/23 09/29/23 09/30/23
06:59 06:59 06:59
Intake Total 2039
Balance 2039
Physical Exam
-
General: Well Developed and No Apparent Distress
HEENT: Normocephalic, Atraumatic and Moist Mucous Membranes
Respiratory: Clear to Auscultation
Cardiac: Regular Rhythm and S1/S2; Negative Murmur, Rub or Gallop
GI: Soft, Nontender, Nondistended and Normal Bowel Sounds; Negative Organomegaly
Rectal: Deferred by Provider
Musculoskeletal: No Clubbing, No Cyanosis and No Edema
Skin: Negative Rash
Neuro: Awake, No Motor Deficits and Nonfocal/Grossly Intact
Psych: Calm
Data Reviewed
-
Total Time Spent with Patient (in minutes): 55
[2023-09-29] MEDS: NSS 1000 IV ×3 (14:24→22:58)
[2023-09-29] MEDS: NSS IV (14:30)
[2023-09-29 15:00] VITALS: BP 126/55; BP 126/65; BP 134/65; PULSE 102; PULSE 87; PULSE 94
--- NOTE | 2023-09-29 15:30 | CM ---
CM met with pt and dtr/Rut bedside
Pt resides with her son and his family in a [place] with 2STE
Pt notes independence with her ADLs
Denies use of DMEs and ADs
PCP- Adelina Zee
Rx- Fernando/Nori
PT recommendations of VN
VN discussed and offered along with outpt
Pt declined both
She notes family will assist as needed
Discharge Disposition- home/VN refusal
[2023-09-29 19:20] VITALS: BP 141/69
[2023-09-29 23:21] VITALS: BP 134/59; BP 137/63; BP 139/63; PULSE 105; PULSE 87; PULSE 97
[2023-09-30] VITALS (21 sets, daily range): BP systolic 81–160; BP diastolic 56–82; PULSE 90–115; BMI 29.4
[2023-09-30 05:33] LABS: % Basophils 0.1 % (0-2); % Eosinophils 0.9 % (0-6); % Immature Granulocytes 0.7 % (0-0.5); % Lymphocytes 20.1 % (20.5-51.1); % Monocytes 6.7 % (1.7-9.3); % Neutrophils 71.5 % (42.2-75.2); Absolute Eosinophils 0.1 10^3/uL (0-0.7); Absolute Immature Granulocytes 0.1 10^3/uL (0-0.05); Absolute Lymphocytes 1.8 10^3/uL (1.2-3.4); Absolute Monocytes 0.6 10^3/uL (0.1-0.6); Absolute Neutrophils 6.5 10^3/uL (1.4-6.5); Hematocrit 33.6 % (37.0-47.0); Hemoglobin 11.5 g/dL (12.0-16.0); Mean Corp Hgb Conc. 34.2 g/dL (33.0-37.0); Mean Corpuscular Hgb 30.8 pg (27.0-31.0); Mean Corpuscular Volume 90.1 fL (81.0-99.0); Mean Platelet Volume 12.3 fL (7.4-10.4); Nucleated Red Blood Cells % 0 %; Platelet Count 210 10^3/uL (130-400); Red Blood Cell Count 3.73 10^6/uL (4.20-5.40); Red Cell Dist. Width 14.6 % (11.5-14.5)
[2023-09-30 05:47] LABS: ALT (SGPT) 47 U/L (0-35); AST (SGOT) 230 U/L (14-36); Albumin 2.8 g/dl (3.5-5.0); Alkaline Phosphatase 351 U/L (38-126); Blood Urea Nitrogen 28 mg/dl (7-17); Calcium 11.7 mg/dl (8.4-10.2); Carbon Dioxide 21 mmol/L (22-30); Chloride 105 mmol/L (98-107); Estimated Creatinine Clearance 39 ml/min; Glucose 88 mg/dl (70-99); Potassium 3.3 mmol/L (3.5-5.1); Sodium 138 mmol/L (135-145); Total Bilirubin 2.6 mg/dl (0.2-1.3); Total Protein 7.4 g/dl (6.3-8.2); eGFR 46.62
[2023-09-30] MEDS: NSS 1000 IV ×2 (05:55→23:48)
--- NOTE | 2023-09-30 07:05 | W.PN.ONC2 ---
Today's Communication / Plan
-
Elevated CEA noted. Await biopsy. Even with history of lymphoma, I am suspicious that this is a second advanced malignancy.
Will check alpha-fetoprotein AFP also for completeness
Impression
Impression
Infiltrative liver process, suggestive of malignancy
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
Hypercalcemia
Plan
Plan
For liver biopsy.
Lymphoplasmacytic lymphoma can occasionally involve the liver. Transformed lymphoma is also a potential possibility. Await biopsy results. Check LDH.
S/P pamidronate for hypercalcemia of malignancy, continue IV fluids. Calcium has improved a bit. Was 13.1, now 11.7.
CEA elevated = 29.9 and CA 19-9 pending. Elevated CEA suggest a non-lymphoma etiology potentially. Will check alpha-fetoprotein AFP also for completeness.
Will follow along and consider treatment options pending biopsy results.
Subjective/Objective
Chief Complaint
ACS Heme Onc
Subjective
Patient offers no specific new complaints. Scheduled for liver biopsy today.
Vital Signs:
Vital Signs
Temp Pulse Resp BP Pulse Ox
98 F 90 16 135/62 94
09/30/23 03:45 09/30/23 03:45 09/30/23 03:45 09/30/23 03:45 09/30/23 03:45
Lab Results:
Laboratory Data
WBC 9.0 10^3/uL (4.8-10.8) 09/30/23 04:20
Hgb 11.5 g/dL (12.0-16.0) L 09/30/23 04:20
Plt Count 210 10^3/uL (130-400) 09/30/23 04:20
PT 18.2 Sec (11.4-14.6) H 09/29/23 04:21
INR 1.53 09/29/23 04:21
APTT 44.5 Sec (23.4-35.0) H 09/29/23 04:21
eGFR 46.62 09/30/23 04:20
Laboratory Tests
09/28/23 09/29/23 09/30/23
06:10 07:27 04:20
Calcium 13.1 H* 11.7 H
Carcinoembryonic Ag 21.9
CA 19-9 Antigen Pending
Physical Exam
NAD
Cardiology: S1 and S2
Pulmonary: Clear
GI: Soft
Extremities: No C/C/E
[2023-09-30] MEDS: PROTONIX IV 40 MG IV (07:41)
[2023-09-30] MEDS: NSS (PRESERVATIVE FREE) 10 ML IV (07:41)
[2023-09-30 08:07] LABS: LDH 2316 U/L (120-246)
[2023-09-30] MEDS: KCL 270 MEQ IV (08:43)
--- NOTE | 2023-09-30 10:47 | W.PN.HOSP.TC ---
Today's Communication/Plan
-
Liver bx today
IVF
Assessment / Plan
Assessment / Plan
A/P: Patient is a 78y F with PMH significant for hypertension and hematologic malignancy who presents to ED complaining of fatigue x 1 week.
Hypercalcemia likely multifactorial With known lymphoma, possible this reflects degree of hypercalcemia of malignancy + volume contraction after one week of poor appetite + HCTZ plus prolonged bedrest
- No prior labs to compare.
- Per patient with lymphoma she does have episode of severe hypercalcemia
- IVF continue aggressively.
- Follow for changes in labs. May be contributing to sense of fatigue.
- Out of bed with PT and OT.
- Calcium downtrended
- Status post pamidronate.
Abnormal LFTs concern for infiltrative liver process ?secondary malignancy issue
- AST > > ALT is suspicious for alternate etiology.
- Patient denies any EtOH use at all.
- Check CPK - 251. CEA elevated. LDH elevated. AFP pending.
- IVFs as noted above.
- Follow for improvement in labs.
- MRCP with abnormal liver lesion. Ultrasound Doppler added per GI and with patency. May need liver biopsy.
- Concern for infiltrative liver malignancy in the setting of lymphoma. Plan is for liver biopsy in the morning.
- No concern for gallbladder related disease or acute cholecystitis. Antibiotics discontinued.
Benign Hypertension
- Stable. Continue amlodipine with holding parameters.
- Hold HCTZ for now.
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
- She is not now nor has she ever been on active treatment.
- Followed by Dr. Tatum.
Hypokalemia
-Replete/monitor
DVT Prophylaxis: Subcut Heparin on hold for liver biopsy today
Code Status: Full
Discussed with family member at bedside in details.
Anticipated Discharge: > 48 hours
Subjective/Interval History
-
Date of Service: September 30, 2023
denies lightheadedness or dizziness
Objective Data
-
Labs:
Laboratory Results
09/30/23
04:20
WBC 9.0
Hgb 11.5 L
Hct 33.6 L
Plt Count 210
Sodium 138
Potassium 3.3 L
Chloride 105
Carbon Dioxide 21 L
BUN 28 H
Creatinine 1.2 H
Glucose 88
Calcium 11.7 H
Total Bilirubin 2.6 H
AST 230 H
ALT 47 H
Alkaline Phosphatase 351 H
Vital Signs:
Vital Signs
Temp Pulse Resp BP Pulse Ox
98.3 F 106 18 130/68 95
09/30/23 06:57 09/30/23 06:57 09/30/23 06:57 09/30/23 06:57 09/30/23 06:57
I&O
09/29/23 09/30/23 10/01/23
06:59 06:59 06:59
Intake Total 2039 3320 / 3320
Output Total 400 / 400
Balance 2039 2920 / 2920
Physical Exam
-
General: Well Developed and No Apparent Distress
HEENT: Normocephalic, Atraumatic and Moist Mucous Membranes
Respiratory: Clear to Auscultation
Cardiac: Regular Rhythm and S1/S2; Negative Murmur, Rub or Gallop
GI: Soft, Nontender, Nondistended and Normal Bowel Sounds; Negative Organomegaly
Rectal: Deferred by Provider
Musculoskeletal: No Clubbing, No Cyanosis and No Edema
Skin: Negative Rash
Neuro: Awake, No Motor Deficits and Nonfocal/Grossly Intact
Psych: Calm
Data Reviewed
-
Total Time Spent with Patient (in minutes): 55
--- NOTE | 2023-09-30 10:50 | W.PN.GI.CBS2 ---
Today's Communication / Plan
-
Await liver bx, to resume diet afterwards
GI/Dr Pickens will call with results
At this juncture no new GI recs will sign off please call for questions
Assessment / Plan
-
The pt is a 78 yo female with a PMH significant for HTN, lymphoma (diagnosed in 2018 did not require treatment per patient followed by Dr. Tatum and Gaston Lui), who presented to the ER with complaints of fatigue, found to have elevated LFTs and
abnormal ultrasound imaging concerning for acute cholecystitis and possible choledocholithiasis given presence of gallstones and elevated bilirubin. She was started on IV antibiotics with Levaquin and Flagyl, made n.p.o., and admitted for further
evaluation by GI and general surgery. Currently she feels comfortable. Her LFTs remain elevated. Pending MRI and MRCP this morning. No prior history of liver disease or gallbladder disease. She does note history of lymphoma, unclear type,
follows with oncology regularly for surveillance and monitoring. Also with elevated calcium levels started on IV fluids.
09/28/2023 MRI abdomen:
IMPRESSION:
'1. Markedly abnormal liver, enlarged, heterogeneous, with differential signal intensity in the left and right hepatic lobes as outlined above. Severely restricted diffusion in the left hepatic lobe with heterogeneous enhancement on postcontrast
imaging concerning for an infiltrative malignancy. BIOPSY IS RECOMMENDED TO EXCLUDE MALIGNANCY.
2. Multiple abnormal small foci of increased T2 signal intensity foci in the right hepatic lobe likely represent siderotic regenerative nodules.
3. No intra or extrahepatic biliary ductal dilatation. No filling defect in the common bile duct.
4. Enlarged gallbladder, with multiple varying size gallstones. No gallbladder wall thickening. Small amount of perihepatic and perisplenic ascites.
5. Mildly enlarged lymph nodes in the helen hepatis are nonspecific. Most likely neoplastic, however may be due to inflammation or infection.
6. The splenic, superior mesenteric and portal veins are patent. There is narrowing of the hepatic veins, question the possibility of Budd-Chiari?'
Problem list:
-Abdominal pain, RUQ, resolved
-Abnormal LFTs
-MRI concerning for infiltrative malignancy
-Ultrasound imaging showing gallstones and ?acute cholecystitis without biliary ductal dilation
-Hypercalcemia
-Leukocytosis
-?JUSTIN, unclear baseline
-Lymphoplasmacytic lymphoma, diagnosed in 2018 following with oncology, no prior treatment
-HTN
Recommendations:
-Etiology of abdominal pain/elevated LFT's likely secondary to concern for infiltrative malignancy process given hx lymphoma v Budd Chiari v other.
-Await liver bx, planned for today
-NPO for liver bx
-Diet post liver bx
At this juncture no new GI recs. Will sign off please call for questions
Subjective
Subjective
Date of Service: September 30, 2023
She has no complaints this AM. Tolerating diet last night NPO for liver bx today
Objective
Data Reviewed
Laboratory Data:
Laboratory Results
09/30/23 04:20
09/30/23 04:20
Laboratory Results
PT 18.2 Sec (11.4-14.6) H 09/29/23 04:21
INR 1.53 09/29/23 04:21
APTT 44.5 Sec (23.4-35.0) H 09/29/23 04:21
Phosphorus 4.4 mg/dl (2.5-4.5) 09/28/23 06:10
Magnesium 2.2 mg/dl (1.6-2.3) 09/28/23 06:10
Total Bilirubin 2.6 mg/dl (0.2-1.3) H 09/30/23 04:20
AST 230 U/L (14-36) H 09/30/23 04:20
ALT 47 U/L (0-35) H 09/30/23 04:20
Alkaline Phosphatase 351 U/L (38-126) H 09/30/23 04:20
Lipase 289 U/L (23-300) 09/28/23 06:10
Vital Signs and I&O:
Vital Signs
Temp Pulse Resp BP Pulse Ox
98.3 F 106 18 130/68 95
09/30/23 06:57 09/30/23 06:57 09/30/23 06:57 09/30/23 06:57 09/30/23 06:57
I&O
09/29/23 09/30/23 10/01/23
06:59 06:59 06:59
Intake Total 2039 3320 / 3320
Output Total 400 / 400
Balance 2039 2920 / 2920
Physical Exam
Physical Exam
GEN: No acute distress, conversant, pleasant, appears older than stated age
HEENT: anicteric, extraocular movements intact, clear oropharynx without exudates
GI: soft, non-distended, not tender to palpation, normal active bowel sounds, no hepatosplenomegaly
EXT: warm, well perfused, trace edema bilaterally
NEURO: AAOx3, non-focal
[2023-09-30 14:22] LABS: CA 19-9 <2 U/mL (<=35)
--- NOTE | 2023-09-30 15:02 | CM ---
Case management following for d/c planning
Chart reviewed
Pt for liver biopsy today. Receiving IVF's
PT recommending HH - pt declined
CM will continue to follow
Plan - anticipate home no needs - declined HH
--- NOTE | 2023-09-30 15:20 | W.PN.UPDATE ---
Update Note
Progress Note Update
- US guided liver biopsy completed.
- L hepatic lobe targeted. No discrete lesions appreciated - heterogeneous appearance.
- Post orders placed. Rec bedrest for next 3 hours
--- NOTE | 2023-09-30 16:12 | PTCARENOTE ---
Addendum entered by Tawnya Blair RN 09/30/23 18:55:
Patient arrived at 1545 not 1345
Original Note:
1345: Patient arrived to 2S post liver biopsy. Band aid on R upper abdomen is clean dry and intact with no hematoma felt. IVF running per order. Bed in lowest position and call funes within reach.
[2023-10-01] MEDS: NSS IV ×2 (02:47→02:56)
[2023-10-01 03:00] VITALS: BP 141/67
[2023-10-01 05:23] LABS: % Basophils 0.5 % (0-2); % Eosinophils 1.4 % (0-6); % Immature Granulocytes 0.8 % (0-0.5); % Monocytes 7.9 % (1.7-9.3); % Neutrophils 72.4 % (42.2-75.2); Absolute Eosinophils 0.1 10^3/uL (0-0.7); Absolute Immature Granulocytes 0.1 10^3/uL (0-0.05); Absolute Lymphocytes 1.1 10^3/uL (1.2-3.4); Absolute Monocytes 0.5 10^3/uL (0.1-0.6); Absolute Neutrophils 4.7 10^3/uL (1.4-6.5); Hematocrit 32.6 % (37.0-47.0); Hemoglobin 10.8 g/dL (12.0-16.0); Mean Corp Hgb Conc. 33.1 g/dL (33.0-37.0); Mean Corpuscular Hgb 30.7 pg (27.0-31.0); Mean Corpuscular Volume 92.6 fL (81.0-99.0); Mean Platelet Volume 12.3 fL (7.4-10.4); Nucleated Red Blood Cells % 0 %; Platelet Count 159 10^3/uL (130-400); Red Blood Cell Count 3.52 10^6/uL (4.20-5.40); Red Cell Dist. Width 15.3 % (11.5-14.5); White Blood Cell Count 6.5 10^3/uL (4.8-10.8)
[2023-10-01 05:45] LABS: ALT (SGPT) 51 U/L (0-35); AST (SGOT) 238 U/L (14-36); Albumin 2.6 g/dl (3.5-5.0); Alkaline Phosphatase 331 U/L (38-126); Blood Urea Nitrogen 21 mg/dl (7-17); Calcium 10.5 mg/dl (8.4-10.2); Carbon Dioxide 21 mmol/L (22-30); Chloride 110 mmol/L (98-107); Estimated Creatinine Clearance 43 ml/min; Glucose 96 mg/dl (70-99); Potassium 3.7 mmol/L (3.5-5.1); Sodium 138 mmol/L (135-145); Total Bilirubin 2.3 mg/dl (0.2-1.3); Total Protein 6.9 g/dl (6.3-8.2); eGFR 51.75
[2023-10-01 06:00] VITALS: BMI 29.9
[2023-10-01 08:02] VITALS: BP 146/75; BP 155/75; BP 160/70; PULSE 115; PULSE 96; PULSE 99
[2023-10-01] MEDS: NSS (PRESERVATIVE FREE) 10 ML IV (08:46)
[2023-10-01] MEDS: PROTONIX IV 40 MG IV (08:46)
[2023-10-01] MEDS: NSS 1000 IV (08:49)
--- NOTE | 2023-10-01 09:55 | W.PN.ONC ---
Today's Communication / Plan
-
For liver biopsy completed pathology pending
Lymphoplasmacytic lymphoma or transformation possible with LDH 2316
S/P pamidronate for hypercalcemia of malignancy, continue IV fluids, calcium improved to 10.5
CEA elevated = 29.9 and CA 19-9 normal at 2
Elevated CEA suggest a non-lymphoma etiology
Alpha-fetoprotein AFP pending
Will follow along and consider treatment options pending biopsy results
Impression
Impression
Infiltrative liver process, suggestive of malignancy
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
Hypercalcemia
Stable anemia 10.8 g/dL
Plan
Plan
Subjective/Objective
Subjective/Objective
Patient without new discomfort. No pain since biopsy
Vital Signs:
Vital Signs
Temp Pulse Resp BP Pulse Ox
97.7 F 96 17 141/67 98
10/01/23 07:00 10/01/23 07:00 10/01/23 07:00 10/01/23 03:00 10/01/23 03:00
Physical exam unchanged
Lab Results:
Laboratory Data
WBC 6.5 10^3/uL (4.8-10.8) 10/01/23 04:07
Hgb 10.8 g/dL (12.0-16.0) L 10/01/23 04:07
Plt Count 159 10^3/uL (130-400) D 10/01/23 04:07
PT 18.2 Sec (11.4-14.6) H 09/29/23 04:21
INR 1.53 09/29/23 04:21
APTT 44.5 Sec (23.4-35.0) H 09/29/23 04:21
eGFR 51.75 10/01/23 04:07
--- NOTE | 2023-10-01 10:18 | W.PN.HOSP.TC ---
Addendum entered and electronically signed by Ab Gutierrez MD 10/01/23 12:19:
Error in dictation-Outpatient biopsy results follow-up with Dr. Tatum.
Original Note:
Today's Communication/Plan
-
DC home
Outpatient BMP
Outpatient biopsy results follow-up with Dr. Larry
Assessment / Plan
Assessment / Plan
A/P: Patient is a 78y F with PMH significant for hypertension and hematologic malignancy who presents to ED complaining of fatigue x 1 week.
Hypercalcemia likely multifactorial With known lymphoma, possible this reflects degree of hypercalcemia of malignancy + volume contraction after one week of poor appetite + HCTZ plus prolonged bedrest
- No prior labs to compare.
- Per patient with lymphoma she does have episode of severe hypercalcemia
- IVF and encourage oral intake. Significant improvement in calcium.
- Follow for changes in labs. May be contributing to sense of fatigue.
- Out of bed with PT and OT.
- Calcium downtrended
- Status post pamidronate.
Abnormal LFTs concern for infiltrative liver process ?secondary malignancy issue
- AST > > ALT is suspicious for alternate etiology.
- Patient denies any EtOH use at all.
- Check CPK - 251. CEA elevated. LDH elevated. AFP pending.
- IVFs as noted above.
- Follow for improvement in labs.
- MRCP with abnormal liver lesion. Ultrasound Doppler added per GI and with patency. May need liver biopsy.
- Concern for infiltrative liver malignancy in the setting of lymphoma. Plan is for liver biopsy in the morning.
- No concern for gallbladder related disease or acute cholecystitis. Antibiotics discontinued. Outpatient [facility] follow-up.
Benign Hypertension
- Stable. Continue amlodipine with holding parameters.
- DC HCTZ for now.
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
- She is not now nor has she ever been on active treatment.
- Followed by Dr. Tatum.
Hypokalemia
-Replete/monitor
DVT Prophylaxis: Subcut Heparin on hold for liver biopsy today
Code Status: Full
Discussed with daughter at bedside to follow-up biopsy results with her primary oncologist Dr. Tatum. Also recommend outpatient blood work.
Discussed with oncology Dr. Francisco alicia for discharge
More than 30 minutes spent in discharge including
Final examination of the patient
Summarizing hospital stay
Instructions for continuing care to all relevant caregivers
Preparation of discharge records, prescriptions, and referral forms
Total time spent (in minutes): 45
Anticipated Discharge: Today
Subjective/Interval History
-
Date of Service: October 01, 2023
Denies any abdominal pain or right upper quadrant pain
Denies any nausea vomiting
Denies any lightheadedness or dizziness
Objective Data
-
Labs:
Laboratory Results
10/01/23
04:07
WBC 6.5
Hgb 10.8 L
Hct 32.6 L
Plt Count 159 D
Sodium 138
Potassium 3.7
Chloride 110 H
Carbon Dioxide 21 L
BUN 21 H
Creatinine 1.1 H
Glucose 96
Calcium 10.5 H
Total Bilirubin 2.3 H
AST 238 H
ALT 51 H
Alkaline Phosphatase 331 H
Vital Signs:
Vital Signs
Temp Pulse Resp BP Pulse Ox
97.7 F 96 17 141/67 98
10/01/23 07:00 10/01/23 07:00 10/01/23 07:00 10/01/23 03:00 10/01/23 03:00
I&O
09/30/23 10/01/23 10/02/23
06:59 06:59 06:59
Intake Total 3320 / 3320 1565 / 1565
Output Total 400 / 400 750 / 750
Balance 2920 / 2920 815 / 815
Physical Exam
-
General: Well Developed and No Apparent Distress
HEENT: Normocephalic, Atraumatic and Moist Mucous Membranes
Respiratory: Clear to Auscultation
Cardiac: Regular Rhythm and S1/S2; Negative Murmur, Rub or Gallop
GI: Soft, Nontender, Nondistended and Normal Bowel Sounds; Negative Organomegaly
Rectal: Deferred by Provider
Musculoskeletal: No Clubbing, No Cyanosis and No Edema
Skin: Negative Rash
Neuro: Awake, No Motor Deficits and Nonfocal/Grossly Intact
Psych: Calm
--- NOTE | 2023-10-01 10:22 | W.DCSUMMARY ---
Discharge Summary
Discharge Data
Date of Admission: 09/28/23
Date of Discharge: 10/01/23
-
Pending Results: Yes
Additional Pending Results:
Follow-up liver biopsy with oncologist
Hospital Course
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 Upon admission patient was found to have abnormal LFTs and severe
hypercalcemia. In regards for abnormal LFTs and was initial concern for cholecystitis and general surgery was consulted. Patient underwent MRCP which was negative for gallbladder related disease or acute cholecystitis. Antibiotics were
discontinued and and diet was restarted. MRI with Markedly abnormal liver, enlarged, heterogeneous, with differential signal intensity in the left and right hepatic lobes as outlined above. Severely restricted diffusion in the left hepatic lobe
with heterogeneous enhancement on postcontrast imaging concerning for an infiltrative malignancy. BIOPSY IS RECOMMENDED TO EXCLUDE MALIGNANCY. Interventional radiology was consulted and patient underwent liver biopsy. Patient creatinine continues
to improve on IV fluid. HCTZ was discontinued. Patient received bisphosphonate. Patient CEA level was checked found to be elevated. LDH was also elevated. AFP level pending. Patient was ambulating without difficulty. Patient and daughter both
were recommended to follow-up liver biopsy results with her outpatient oncologist Dr. Tatum as there is concern for secondary malignancy. Patient also to follow-up with primary doctor for blood pressure management and outpatient blood work.
Discharge Plan
-
Patient Disposition: Home (Routine Discharge)
Discharge Diagnosis/Procedures: Hypercalcemia likely multifactorial With known lymphoma, possible this reflects degree of hypercalcemia of malignancy + volume contraction after one week of poor appetite + HCTZ plus prolonged bedrest
Abnormal liver function testing with concern for infiltrative hepatic process
Hypokalemia
Condition: Fair
Diet: As tolerated
Activity: With assistance and As tolerated
Blood Work: cbc and bmp in 1 week via primary doctor.
Activity Restrictions/Additional Instructions:
Follow-up liver biopsy and alpha-fetoprotein blood work results with Dr. Tatum oncologist
Referrals:
Annie Zee DO [Family Provider] - in less than 1 week (Follow-up with primary doctor for blood work and blood pressure management)
Russell Tatum MD [Active] - in one to two weeks (Call to make appointment follow-up biopsy results)
Additional Discharge Medication Instructions: Hydrochlorothiazide was discontinued.
Prescriptions:
Continued
amlodipine 10 mg Tablet
10 mg PO DAILY
Discontinued
hydrochlorothiazide 25 mg Tablet
25 mg PO DAILY
Discharge Orders:
Discharge Patient (As Directed); Ordered 10/01/23
Ordered By: Ab Gutierrez
Discharge Date and Time
Print Language: FIJIAN
[2023-10-01 10:57] VITALS: BP 148/75
--- NOTE | 2023-10-01 11:04 | CM ---
CM following re: discharge planning.
Reviewed pt's chart, met with pt. Pt's daughter and pt's son at bedside.
Discharge order is noted. Both pt and her family are aware, expressed their agreement with discharge. IMM reviewed, placed on chart, pt has a copy. pt's daughter and son stated they will transport pt home.
Both pt and her family are aware that PT and OT recommended home PT and pt adamantly refused having home PT and OT. Both pt's daughter and son supports pt's plan not to have home PT/OT and they stated they will provide with all necessary care to pt
at home. CM explained to the pt and her family the benefits of VN services and pt firmly rejected it.
D/C plan: home no needs. Daughter and son to transport.
[2023-10-01 18:59] LABS: AFP Male/Tumor Marker 2.48 ng/ml
== END 2023-10-01 12:43 | disposition home or self-care (01) | DRG 841 ==
LOC: 2 SOUTH 04:09
PROVIDERS: Emergency Medicine; Internal Medicine Hematology & Oncology; Radiology Vascular & Interventional Radiology; Surgery; ADMITTING PHYSICIAN Hospitalist; ATTENDING PHYSICIAN Hospitalist; CONSULT PHYSICIAN Internal Medicine Gastroenterology; CONSULT PHYSICIAN Surgery; EMERGENCY PHYSICIAN Student in an Organized Health Care Education/Training Program; FAMILY PHYSICIAN Family Medicine; OTHER PHYSICIAN Internal Medicine Hematology & Oncology
PROC: 0FD03ZX Extraction of Liver, Percutaneous Approach, Diagnostic (ICD-10-PCS; 2023-09-30)
DX: C83.00 Small cell B-cell lymphoma, unspecified site (principal); C78.7 Secondary malignant neoplasm of liver and intrahepatic bile duct; K80.10 Calculus of gallbladder with chronic cholecystitis without obstruction; N17.9 Acute kidney failure, unspecified; E83.52 Hypercalcemia; I10 Essential (primary) hypertension; E87.6 Hypokalemia
CPT/HCPCS: 88307; 47000; 74183; 76700; 76942; 80048; 80053; 80076; 82105; 82306; 82330; 82378; 82550; 83615; 83690; 83735; 83970; 84100; 84443; 84484; 85025; 85027; 85610; 85730; 86301; 88341; 88342; 88360; 93005; 93975; 97116; 97162; 97166; 99152; 99153; 99285; A9575; J2430

== ENCOUNTER 2023-10-08 13:24 | Emergency (ER) | payer OTHER, SELFPAY ==
[2023-10-08 13:46] VITALS: BP 126/62
--- NOTE | 2023-10-08 18:07 | ED.GENMED ---
History of Present Illness
General
Chief Complaint: Abnormal Lab Value
Source: patient
Exam Limitations: none
Time Seen by Provider: 10/08/23 15:44
Nursing documentation reviewed up to this point in time: agreed with
Travel History
Have you had any contact with someone who has COVID-19?: No
Do you have any symptoms of coronavirus? Fever > 100 degrees, chills, cough, shortness of breath, sore throat, loss of taste or smell, muscle aches, or headache?: No
History of Present Illness
History of Present Illness:
78-year-old female with past medical history of recently diagnosed liver cancer or potential liver mets hypertension presenting to the emergency department today with concerns of elevated labs seen by the primary care doctor that were ordered as an
outpatient. She was recently in the hospital last week where she was found to have abnormalities to her liver has been getting further workup had a biopsy that showed carcinoma to the liver and has had ongoing abnormalities to liver function test.
Bilirubin. These were further worsened with outpatient testing was sent to the ER. She claims that she has had ongoing fatigue but denies any specific pain or vomiting.
Review of Systems
Review of Systems
Allergies reviewed?: Yes
All Other Systems: ROS reviewed and negative except as documented in HPI and ROS
Phy Exam
Physical Exam
Physical Exam:
GENERAL: Alert , in no apparent distress
EYE: pupils equal and reactive
NECK: Supple, no significant adenopathy.
ENT: o/p clr, mmm.
CARDIAC: Regular rate and rhythm .
LUNGS: Clear breath sounds bilaterally, no acute respiratory distress, no wheezes/rales/rhonchi
ABDOMEN: Soft, without focal tenderness, no r/g, no cvat
NEUROLOGICAL: Alert and oriented, no focal neuro deficits
SKIN: Warm and dry, skin intact.
MUSCULOSKELETAL: No edema, well perfused.
PSYCH: Normal and appropriate interaction.
Course
Vital Signs
Initial and Last Documented VS:
Initial Vital Signs
Temp Pulse Resp BP Pulse Ox
97.4 F 104 16 126/62 96
10/08/23 13:46 10/08/23 13:46 10/08/23 13:46 10/08/23 13:46 10/08/23 13:46
Last Documented Vital Signs
Temp Pulse Resp BP Pulse Ox
97.4 F 86 18 120/60 98
10/08/23 13:46 10/08/23 18:17 10/08/23 18:17 10/08/23 18:17 10/08/23 18:17
MDM/Problems Addressed
MDM/Problems Addressed:
78-year-old female presenting to the emergency department with concerns of abnormal outpatient labs with significantly elevated bilirubin level in the fives previously was in the twos. Recently diagnosed with likely cancerous process in the liver.
She has had ongoing fatigue decreased appetite denies specific vomiting or pain. Case was initially discussed with GI and felt the abnormality likely does represent emergent surgical pathology. Case additionally discussed with oncology that we
will have her follow-up closely as an outpatient but otherwise patient with no emergent symptoms at this time does have ongoing fatigue and was given Zofran for her intermittent nausea. Return precautions given.
*Critical Care Note
Total Time (30-74mins, 75-104mins- exclusive of procedures): Not Applicable
ED Attending Note
-
Portions of this chart may have been created with voice recognition software.� Occasional wrong word or��sound alike� substitutions may have occurred due to the inherent limitations of voice recognition software.
Discharge Plan
Departure
Patient Disposition: Home (Routine Discharge)
Date of Disposition: 10/08/23
Time of Disposition: 18:32
Patient with high blood pressure during this ER visit?: No
Condition: Good
Covid-19: Not Applicable
Discharge Problem:
Elevated bilirubin
Instructions: Liver Function Test, Bilirubin Blood Level
Prescriptions:
New
ondansetron 4 mg tablet,disintegrating
4 mg PO Q8H PRN (Reason: nausea and vomiting) Qty: 7 0RF
No Action
amlodipine 10 mg Tablet
10 mg PO DAILY
Referrals:
Annie Zee DO [Family Provider] -
Activity Restrictions/Additional Instructions:
You came to the emergency department today with concerns of an abnormal lab. Please follow closely as an outpatient with oncology. Return to the emergency department for any worsening, new or concerning symptoms.
Interventions
Interventions:
*Risk Screen - Suicide Last Done: 10/08/23 17:52
*General Assessment Last Done: 10/08/23 17:52
*Neglect/Abuse Screening Last Done: 10/08/23 17:52
Discharge Date and Time
Print Language: ANGOLAN
[2023-10-08 18:17] VITALS: BP 120/60
[2023-10-08] MEDS: ZOFRAN ODT (ORALLY DISINTEGRATING) 4 MG PO (18:56)
== END 2023-10-08 18:59 | disposition home or self-care (01) ==
LOC: EMR 13:24
PROVIDERS: EMERGENCY PHYSICIAN Emergency Medicine; FAMILY PHYSICIAN Family Medicine
DX: R17 Unspecified jaundice (principal); R53.83 Other fatigue
CPT/HCPCS: 99283